=== PATIENT | female | born 1965 | race Caucasian/White ===

== ENCOUNTER → 2019-08-04 13:21 | Outpatient (BNVA) | payer MEDICARE, SELFPAY | PROVIDERS: Family Provider Family Medicine; PCP Family Medicine; Visit Provider Nurse Practitioner | DX: F25.0 Schizoaffective disorder, bipolar type (principal); F10.20 Alcohol dependence, uncomplicated | CPT/HCPCS: 99214 ==

== ENCOUNTER 2019-08-15 10:13 | Outpatient (CLI) | payer MEDICARE, SELFPAY ==
--- NOTE | 2019-08-15 10:22 | MM_ITS ---
WS: [id number] SCREENING DIGITAL MAMMOGRAM WITH CAD HISTORY: SCREENING COMPARISON: 06/14/2018, 11/09/2017, 11/22/2013 Bilateral CC and MLO views submitted. Computer aided detection analyzed. Breast composition: The breasts are heterogeneously dense, which may obscure small masses. No suspici ous masses, microcalcifications or architectural distortion. Asymmetric fibroglandular tissue and amber cifications are stable. MM/[place] [id number] IMPRESSION: BI-RADS: 2-Benign FOLLOW UP: 1 Year Follow-up
== END 2019-08-15 10:14 | disposition home or self-care (01) ==
LOC: RADSHAW 10:19
PROVIDERS: Family Provider Family Medicine; PCP Family Medicine; Visit Provider Family Medicine
DX: Z12.31 Encounter for screening mammogram for malignant neoplasm of breast (principal)
CPT/HCPCS: 77067

== ENCOUNTER → 2019-10-25 08:21 | Outpatient (BNVA) | payer MEDICARE, SELFPAY | PROVIDERS: Family Provider Family Medicine; PCP Family Medicine; Visit Provider Nurse Practitioner | DX: F10.20 Alcohol dependence, uncomplicated (principal); F25.0 Schizoaffective disorder, bipolar type | CPT/HCPCS: 99214 ==

== ENCOUNTER 2019-11-11 10:07 | Outpatient (CLI) | payer MEDICARE, SELFPAY ==
--- NOTE | 2019-11-11 10:13 | US_ITS ---
WS: [id number] ABDOMINAL ULTRASOUND LIMITED REASON FOR VISIT: ELEVATED LIVER ENZYMES TECHNIQUE: Grayscale and Doppler ultrasound examination of the abdomen. FINDINGS: Pancreas: Within normal limits Abdominal aorta and IVC: Within normal limits Liver: Liver measures 8.40 cm in length. Normal hepatopedal circulation. Gallbladder: Gallbladder wall thickness measures 0.28 cmno stones are identified. Common bile duct me asures 0.43 cm. Right kidney: Right kidney measures 11.13 cm x 4.36 cm x 4.86 cm. No hydronephrosis no stones US/US abdomen limited 62099 IMPRESSION: The gallbladder is mildly thickened wall suggesting low-grade cholecystitis.
== END 2019-11-11 10:08 | disposition home or self-care (01) ==
PROVIDERS: Visit Provider Family Medicine
DX: R74.8 Abnormal levels of other serum enzymes (principal)
CPT/HCPCS: 76705

== ENCOUNTER → 2019-12-06 08:21 | Outpatient (BNVA) | payer MEDICARE, SELFPAY | PROVIDERS: Visit Provider Nurse Practitioner | DX: F25.0 Schizoaffective disorder, bipolar type (principal); F10.20 Alcohol dependence, uncomplicated | CPT/HCPCS: 99213 ==

== ENCOUNTER → 2020-01-30 07:38 | Outpatient (BNVA) | payer MEDICARE, SELFPAY | PROVIDERS: Visit Provider Nurse Practitioner | DX: F25.0 Schizoaffective disorder, bipolar type (principal); F10.20 Alcohol dependence, uncomplicated | CPT/HCPCS: 99213 ==

== ENCOUNTER 2020-02-02 14:11 | Emergency (ER) | payer MEDICARE, SELFPAY ==
[2020-02-02 14:16] VITALS: BP 155/81; PULSE 97; RESP 16; TEMP 36.9; O2SAT 97; BMI 22.1
--- NOTE | 2020-02-02 14:37 | ECG_ITS ---
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 Measurements Intervals [place] Rate: 91 P: 28 TX: 173 QRS: 21 QRSD: 97 T: 50 QT: 358 QTc: 441 Interpretive Statements SINUS RHYTHM Compared to ECG 04/03/2019 14:34:51 No significant changes Electronically Signed On 02-03-2020 16:00:18 CDT by Tylor Jackson M.D. [email or web address] regional medical [email or web address] [email or web address]/store/OM/[id number]
--- NOTE | 2020-02-02 14:37 | CT_ITS ---
WS: [id number] CT HEAD TECHNIQUE: Noncontrast CT of the head obtained from the skullbase to the vertex. CLINICAL INFORMATION: Symptoms of Acute Stroke COMPARISON: CT 9 ,019 and MRI 1999 2016, 2010, 2005 DLP: 678.[address] scans at [facility] use at least one of these dose optimization techniques: automat ed exposure control; mA and/or kV adjustment per patient size (includes targeted exams where dose is matched to clinical indication); or iterative reconstruction. FINDINGS: No evidence of intracranial hemorrhage or mass effect. Ventricular system and basal cisterns are davis nt. No extra-axial fluid collections. No evidence of mass or mass effect. Normal marrero-white different iation. Paranasal sinuses and mastoid air cells are well aerated. .Normal visualized soft tissues. Incidental slightly low-lying cerebellar tonsils. Notified Tashi Andrews DO at 02/02/2020 3:[address]/CT head wo con* [id number] IMPRESSION: 1. No evidence of intracranial hemorrhage or mass effect. 2. Normal marrero-white differentiation. 3. No acute intracranial findings
--- NOTE | 2020-02-02 14:40 | ED_ITS ---
HPI - Neuro Symptoms/Deficit General: Chief Complaint: Neuro Symptoms/Deficit Stated Complaint: feels weird Time Seen by Provider: 02/02/20 14:28 History of Present Illness: HPI Narrative: 54-year-old female comes in concerned about blood pressure just generalized that she not feeling well lightheadedness some shortness of breath she denies chest pain no difficulty with speech or swallowing left arm is been tingling. She states she still has a tingling in her arms she denies any nausea vomiting diarrhea no respiratory symptoms no abdominal pain no other symptoms. She is not on any medications for blood pressure states she has a history of bipolar Onset (ago): day(s) Location: left arm History of same: Yes Severity: mild Quality: numb and tingling Relieving factors: none Exacerbating factors: none Context: gradual onset Associated symptoms: Reports no associated symptoms; Deny chest pain, cough, diaphoresis, fevers/chills, nausea, seizures or vomiting Treatments Prior to Arrival: none Review of Systems Const: Denies: diaphoresis ENMT: Denies: throat pain, ear or mastoid pain, nasal discharge or nasal congestion Card: Denies: chest pain Resp: Denies: dyspnea, productive cough or non-productive cough GI: Denies: abdominal pain, nausea, vomiting, hematemesis, coffee ground emesis, diarrhea, constipation, bloating, hematochezia or melena : Denies: flank pain, difficulty voiding, dysuria, urinary frequency or urinary urgency Skin/Breast: Denies: rash or pruritus PFSH ED PFSH: Medical History Alcohol dependence, uncomplicated Schizoaffective disorder, bipolar type Social History Smoking and tobacco status: heavy tobacco smoker cigarettes Smoking risk assessment/counseling performed?: Yes Tobacco counseling given: counseling >3 minutes Alcohol intake: current Alcohol intake frequency: 0-2 Drinks per Day NIH stroke score NIHSS: Level Of Consciousness - 1a: 0 Level Of Consciousness Questions - 1b: Both Correct Level Of Consciousness Commands - 1c: Both Correct Best Gaze - 2: Normal Visual Whalen - 3: No Visual Loss Facial Palsy - 4: Normal Motor Arm Right - 5: No Drift Motor Arm Left - 5: No Drift Motor Leg Right - 6: No Drift Motor Leg Left - 6: No Drift Limb Ataxia - 7: Absent Sensory - 8: Normal Best Language - 9: No Aphasia Dysarthia - 10: Normal Extinction And Inattention - 11: 0 Score: Total Score: 0 Physical Exam Const: COMMON NORMALS: no acute distress GENERAL APPEARANCE: cooperative and comfortable ORIENTATION/CONSCIOUSNESS: Yes awake, Yes oriented to person, Yes oriented to place and Yes oriented to time HENMT: COMMON NORMALS: normocephalic and atraumatic HEAD & SCALP: normoceph alic and atraumatic Eye: COMMON NORMALS: Equal, round and reactive pupils present, EOMs intact bilaterally, conjunctivae normal and no scleral icterus CONJUNCTIVA: Yes conjunctivae normal PUPIL: Yes Equal, round and reactive pupils present Neck/C-Spine: COMMON NORMALS: full ROM, no lymphadenopathy, supple and no JVD Lymph: LYMPHATIC: no lymphadenopathy noted and no lymphedema noted Resp: COMMON NORMALS: normal respiratory effort, No retractions, No use of accessory muscles and clear to auscultation bilaterally AUSCULTATION: clear to auscultation bilaterally Cardio: COMMON NORMALS: no JVD, regular rate, regular rhythm and No murmurs present (Cardio) RATE: regular rate RHYTHM: regular rhythm GI: COMMON NORMALS: Soft to palpation and No hepatosplenomegaly present AUSCULTATION: Yes normoactive bowel sounds PALPATION: Yes Soft to palpation, No Tenderness to palpation present (GI), No Guarding due to palpation present (GI) and Yes No hepatosplenomegaly present Extremity: COMMON NORMALS: normal to inspection, capillary refill normal, no clubbing, cyanosis or edema, no calf tenderness and no pedal edema Neuro: SENSORIUM/ORIENTATION: Yes oriented to person, Yes oriented to place and Yes oriented to time Skin: COMMON NORMALS: no rashes or lesions noted GENERAL SKIN EXAM: no rashes or lesions noted Course Vital Signs: Vital signs: Vital Signs Temperature 98.4 F 02/02/20 14:16 Pulse Rate 96 02/02/20 17:28 Respiratory Rate 16 02/02/20 17:28 Blood Pressure 165/95 02/02/20 17:28 Pulse Oximetry 97 02/02/20 17:28 MDM - Neuro Symptoms/Deficit MDM Narrative: Medical decision making narrative: After fluids patient is feeling much better blood pressure is improved we will discharge home did ask her to take aspirin daily. We will also start her on lisinopril 5 mg p.o. daily. Return to the ER if she has problems otherwise follow-up with primary care doctor within the week. Lab Data: Labs: Lab Results 02/02/20 02/02/20 02/02/20 Range/Units 15:11 15:11 15:11 WBC 5.5 (4.0-10.0) 10^3/ uL RBC 4.12 (4.1-5.3) 10^6/u L Hgb 13.2 (11.5-15.3) g/dL Hct 41.6 (37.0-47.0) % MCV 101.0 H (81-99) fL MCH 32.0 (28.0-34.0) pg MCHC 31.7 (30.0-36.0) g/dL RDW 12.8 (12.1-15.1) % Plt Count 196 (130-400) 10^3/c mm MPV 11.8 H (7.4-10.4) fL Neut % (Auto) 77.1 % Lymph % (Auto) 15.2 % [place] % (Auto) 6.1 % Eos % (Auto) 0.7 % Baso % (Auto) 0.5 % Neut # (Auto) 4.27 (1.8-7.7) 10^3/u L Lymph # (Auto) 0.8 (0.8-4.8) 10^3/u L [place] # (Auto) 0.3 (0.2-0.9) 10^3/u L Eos # (Auto) 0.0 (0.0-0.8) 10^3/u L Baso # (Auto) 0.0 (0.0-0.1) 10^3/u L Nucleated RBC % (a uto) 0 % Nucleated RBCs # 0.0 /100WBC PT 12.30 (10.5-13.3) SECO NDS INR 0.88 (0.8-1.2) APTT 27.2 (23.9-36.7) SECO NDS Sodium 139 (136-145) mmol/L Potassium 4.4 (3.5-5.1) mmol/L Chloride 106 (98-107) mmol/L Carbon Dioxide 25 (22-29) mmol/L Anion Gap 12.4 (5-19) BUN 20 (6-20) mg/dL Creatinine 0.8 (0.5-0.9) mg/dL GFR Calculation 74.7 L (90-130) mL/min Glucose 122 H (65-115) mg/dL Calculated Osmolal ity 286 (285-295) mOsm/k g Calcium 9.6 (8.5-10.5) mg/dL Total Bilirubin 0.2 (0.15-1.2) mg/dL AST 32 (0-32) U/L ALT 36 H (0-33) U/L Alkaline Phosphata se 131 H (35-105) IU/L Total Protein 6.8 (6.6-8.7) g/dL Albumin 4.7 (3.5-5.2) g/dL Globulin 2.1 (1.3-4.6) g/dL Urine Color (Yellow) Urine Appearance (CLEAR) Urine pH (5-7) Ur Specific Gravit y (1.005-1.030) Urine Protein (Negative) Urine Glucose (UA) (Normal) Urine Ketones (Negative) Urine Blood (Negative) Urine Nitrate (Negative) Urine Bilirubin (NEGATIVE) Urine Urobilinogen (Negative) mg/dL Ur Leukocyte Fidelia ase (Negative) Urine Opiates Scre en (Negative) ng/mL Ur Barbiturates Sc reen (Negative) ng/mL Ur Phencyclidine S crn (Negative) ng/mL Ur Amphetamines Sc reen (Negative) ng/mL U Benzodiazepines Scrn (Negative) ng/mL Urine Cocaine Scre en (Negative) ng/mL U Marijuana (THC) Screen (Negative) ng/mL 02/02/20 02/02/20 Range/Units 16:06 16:06 WBC (4.0-10.0) 10^3/ uL RBC (4.1-5.3) 10^6/u L Hgb (11.5-15.3) g/dL Hct (37.0-47.0) % MCV (81-99) fL MCH (28.0-34.0) pg MCHC (30.0-36.0) g/dL RDW (12.1-15.1) % Plt Count (130-400) 10^3/c mm MPV (7.4-10.4) fL Neut % (Auto) % Lymph % (Auto) % [place] % (Auto) % Eos % (Auto) % Baso % (Auto) % Neut # (Auto) (1.8-7.7) 10^3/u L Lymph # (Auto) (0.8-4.8) 10^3/u L [place] # (Auto) (0.2-0.9) 10^3/u L Eos # (Auto) (0.0-0.8) 10^3/u L Baso # (Auto) (0.0-0.1) 10^3/u L Nucleated RBC % (a uto) % Nucleated RBCs # /100WBC PT (10.5-13.3) SECO NDS INR (0.8-1.2) APTT (23.9-36.7) SECO NDS Sodium (136-145) mmol/L Potassium (3.5-5.1) mmol/L Chloride (98-107) mmol/L Carbon Dioxide (22-29) mmol/L Anion Gap (5-19) BUN (6-20) mg/dL Creatinine (0.5-0.9) mg/dL GFR Calculation (90-130) mL/min Glucose (65-115) mg/dL Calculated Osmolal ity (285-295) mOsm/k g Calcium (8.5-10.5) mg/dL Total Bilirubin (0.15-1.2) mg/dL AST (0-32) U/L ALT (0-33) U/L Alkaline Phosphata se (35-105) IU/L Total Protein (6.6-8.7) g/dL Albumin (3.5-5.2) g/dL Globulin (1.3-4.6) g/dL Urine Color Yellow (Yellow) Urine Appearance Clear (CLEAR) Urine pH 6 (5-7) Ur Specific Gravit y 1.020 (1.005-1.030) Urine Protein Neg (Negative) Urine Glucose (UA) Norm (Normal) Urine Ketones Negative (Negative) Urine Blood Neg (Negative) Urine Nitrate Negative (Negative) Urine Bilirubin Neg (NEGATIVE) Urine Urobilinogen Norm (Negative) mg/dL Ur Leukocyte Fidelia ase Negative (Negative) Urine Opiates Scre en Negative (Negative) ng/mL Ur Barbiturates Sc reen Negative (Negative) ng/mL Ur Phencyclidine S crn Negative (Negative) ng/mL Ur Amphetamines Sc reen Negative (Negative) ng/mL U Benzodiazepines Scrn Negative (Negative) ng/mL Urine Cocaine Scre en Negative (Negative) ng/mL U Marijuana (THC) Screen Negative (Negative) ng/mL Discharge Plan Discharge Patient Disposition: Home Clinical Impression: Hypertension Condition: Stable Prescriptions: New lisinopril 5 mg tablet 5 mg PO DAILY Qty: 30 RF: 0 aspirin 81 mg tablet,chewable 81 mg PO DAILY Qty: 30 RF: 0 No Action mirtazapine 30 mg tablet 45 mg PO BEDTIME RF: 0 gabapentin 100 mg capsule 200 mg PO TID RF: 0 fluoxetine [Prozac] 40 mg capsule 80 mg PO QAM Qty: 60 RF: 1 quetiapine [Seroquel] 100 mg tablet 100 mg PO BID Qty: 60 RF: 1 cyclobenzaprine 10 mg Tablet 10 mg PO BID RF: 0 potassium chloride 10 mEq tablet extended release 10 meq PO DAILY RF: 0 simvastatin 40 mg Tablet 40 mg PO DAILY RF: 0 levothyroxine 75 mcg Tablet 75 mcg PO DAILY RF: 0 dicyclomine 20 mg tablet 20 mg PO QID RF: 0 omeprazole 20 mg Capsule,Delayed Release(Dr/Ec) 20 mg PO BID RF: 0 loratadine 10 mg Tablet 10 mg PO QAM RF: 0 naproxen 500 mg Tablet 500 mg PO BID RF: 0 Ultram 50 - 100 mg PO TID PRN (Reason: Pain) RF: 0 Vitamin B-12 1 tab PO DAILY RF: 0 Vitamin C 1 tab PO DAILY RF: 0 magnesium 1 tab PO DAILY RF: 0 vitamin E 1 cap PO DAILY RF: 0 Lamictal 25 mg tablet 50 mg PO DAILY RF: 0 Seroquel 400 mg tablet 800 mg PO BEDTIME RF: 0 Discharge Orders: Discharge Order (Routine); Ordered 02/02/20 Ordered By: Tashi Andrews Referrals: Caitlyn Leslie MD [Primary Care Provider] - Discharge Diet: Usual diet Discharge Activity: Resume usual activity Activity Restrictions/Additional Instructions: Follow-up with your primary care doctor recheck your blood pressure in 1 week. Discharge Date/Time: 07/30/20 17:29 Coding Level of Care Code ED Sound Controller for Chg Fwd Exam Comprehensive
[2020-02-02 14:45] VITALS: BP 142/98; PULSE 93; RESP 18; O2SAT 96
[2020-02-02 15:45] LABS: Basophils % 0.5 %; Eosinophils % 0.7 %; Hematocrit 41.6 % (37.0-47.0); Hemoglobin 13.2 g/dL (11.5-15.3); Lymphocytes # 0.8 10^3/uL (0.8-4.8); Lymphocytes % 15.2 %; Mean Corpuscular HGB Conc 31.7 g/dL (30.0-36.0); Mean Platelet Volume 11.8 fL (7.4-10.4); Monocytes # 0.3 10^3/uL (0.2-0.9); Monocytes % 6.1 %; Neutrophils # 4.27 10^3/uL (1.8-7.7); Neutrophils % 77.1 %; Nucleated Red Blood Cells % 0 %; Platelet Count 196 10^3/cmm (130-400); Red Blood Count 4.12 10^6/uL (4.1-5.3); Red Cell Distribution Width 12.8 % (12.1-15.1); White Blood Count 5.5 10^3/uL (4.0-10.0)
[2020-02-02 15:52] LABS: INR 0.88 (0.8-1.2)
[2020-02-02 15:53] LABS: Partial Thromboplastin Time 27.2 SECONDS (23.9-36.7)
[2020-02-02 15:59] LABS: Alanine Aminotransferase 36 U/L (0-33); Albumin Level 4.7 g/dL (3.5-5.2); Alkaline Phosphatase 131 IU/L (35-105); Anion Gap 12.4 (5-19); Aspartate Amino Transferase 32 U/L (0-32); Blood Urea Nitrogen 20 mg/dL (6-20); Calcium 9.6 mg/dL (8.5-10.5); Carbon Dioxide 25 mmol/L (22-29); Chloride 106 mmol/L (98-107); Globulin 2.1 g/dL (1.3-4.6); Glomerular Filtration Rate 74.7 mL/min (90-130); Glucose 122 mg/dL (65-115); Osmolality Calculated 286 mOsm/kg (285-295); Potassium 4.4 mmol/L (3.5-5.1); Sodium 139 mmol/L (136-145); Total Bilirubin 0.2 mg/dL (0.15-1.2); Total Protein 6.8 g/dL (6.6-8.7)
[2020-02-02 16:01] VITALS: BP 138/78; PULSE 74; RESP 16; O2SAT 98
[2020-02-02 16:14] LABS: Add Urine Microscopic? NO
[2020-02-02 16:26] LABS: Bilirubin Urine Neg (NEGATIVE); Blood Urine Neg (Negative); Glucose Urine UA Norm (Normal); Ketones Urine Negative (Negative); Leukocyte Esterase Urine Negative (Negative); Nitrate Urine Negative (Negative); Protein Urine Neg (Negative); Urine Appearance Clear (CLEAR); Urine Color Yellow (Yellow); Urobilinogen Urine Norm (Negative); pH Urine 6 (5-7)
[2020-02-02 17:19] LABS: Amphetamines Screen Urine Negative (Negative); Barbiturates Screen Urine Negative (Negative); Benzodiazepines Screen Urine Negative (Negative); Cocaine Screen Urine Negative (Negative); Opiate Screen Urine Negative (Negative); PCP Screen Urine Negative (Negative); THC Screen Urine Negative (Negative)
[2020-02-02 17:28] VITALS: BP 165/95; PULSE 96; RESP 16; O2SAT 97
== END 2020-02-02 17:29 | disposition home or self-care (01) ==
PROVIDERS: Emergency Provider Family Medicine; PCP Family Medicine
DX: I10 Essential (primary) hypertension (principal); F17.210 Nicotine dependence, cigarettes, uncomplicated; Z79.899 Other long term (current) drug therapy
CPT/HCPCS: 12345; 36415; 70450; 80053; 80306; 81003; 85025; 85610; 85730; 93005; 99283; 99284

== ENCOUNTER → 2020-02-27 08:19 | Outpatient (BNVA) | payer MEDICARE, SELFPAY | PROVIDERS: PCP Family Medicine; Visit Provider Nurse Practitioner | DX: F25.0 Schizoaffective disorder, bipolar type (principal); F10.20 Alcohol dependence, uncomplicated; Z79.899 Other long term (current) drug therapy | CPT/HCPCS: 99214 ==

== ENCOUNTER → 2020-04-23 07:56 | Outpatient (BNVA) | payer MEDICARE, SELFPAY | PROVIDERS: PCP Family Medicine; Visit Provider Nurse Practitioner | DX: F25.0 Schizoaffective disorder, bipolar type (principal); F10.20 Alcohol dependence, uncomplicated | CPT/HCPCS: 99213 ==

== ENCOUNTER → 2020-07-18 07:49 | Outpatient (BNVA) | payer MEDICARE, SELFPAY | PROVIDERS: PCP Family Medicine; Visit Provider Nurse Practitioner | DX: F10.20 Alcohol dependence, uncomplicated (principal); F25.0 Schizoaffective disorder, bipolar type | CPT/HCPCS: 99213 ==

== ENCOUNTER → 2020-10-10 08:23 | Outpatient (BNVA) | payer MEDICARE, SELFPAY | PROVIDERS: PCP Family Medicine; Visit Provider Nurse Practitioner | DX: F25.0 Schizoaffective disorder, bipolar type (principal); F10.20 Alcohol dependence, uncomplicated | CPT/HCPCS: 99214 ==

== ENCOUNTER → 2020-11-28 07:45 | Outpatient (BNVA) | payer MEDICARE, SELFPAY | PROVIDERS: PCP Family Medicine; Visit Provider Nurse Practitioner | DX: F25.0 Schizoaffective disorder, bipolar type (principal); F10.20 Alcohol dependence, uncomplicated | CPT/HCPCS: 99214 ==

== ENCOUNTER → 2020-12-06 10:50 | Outpatient (BNVA) | payer MEDICARE, SELFPAY | PROVIDERS: PCP Family Medicine | DX: S62.616A Displaced fracture of proximal phalanx of right little finger, initial encounter for closed fracture (principal); W19.XXXA Unspecified fall, initial encounter | CPT/HCPCS: 73130 ==

== ENCOUNTER 2021-01-01 08:25 | Outpatient (CLI) | payer MEDICARE, SELFPAY ==
--- NOTE | 2021-01-01 | US_ITS ---
NOTE: Report was unsigned for reason: Order was edited. Original Signature date and time was: 01/01/2021 0942 BILATERAL DIAGNOSTIC DIGITAL MAMMOGRAM WITH CAD HISTORY: Mastodynia; aziza BREAST PAIN COMPARISON: 08/15/2019, 06/14/2018 Bilateral CC, ML and MLO views submitted. Computer aided detection analyzed. Breast composition: The breasts are heterogeneously dense, which may obscure small masses. No suspicious masses, microcalcifications or architectural distortion. Asymmetries are stable. No suspicious mass or interval change in the breasts. IMPRESSION: BI-RADS: 2-Benign FOLLOW UP: 1 Year Follow-up Bilateral breast ultrasound, limited. Ultrasound was also performed in the upper outer quadrants of each breast as this is the location of greatest pain. Ultrasound is directed to the upper-outer quadrants of each breast. No masses or distortion. No shadowing or soft tissue mass. No lymph nodes are identified. IMPRESSION: BI-RADS 2. Follow-up: 1 year follow-up. Dictated By: Nimo Hyde DO Signed By: Nimo Hyde DO Signed Date/Time: 01/01/21 1438 DD/ 0941 MTDCarmen
--- NOTE | 2021-01-01 08:32 | MM_ITS ---
WS: [id number] BILATERAL DIAGNOSTIC DIGITAL MAMMOGRAM WITH CAD HISTORY: Mastodynia; aziza BREAST PAIN COMPARISON: 08/15/2019, 06/14/2018 Bilateral CC, ML and MLO views submitted. Computer aided detection analyzed. Breast composition: The breasts are heterogeneously dense, which may obscure small masses. No suspici ous masses, microcalcifications or architectural distortion. Asymmetries are stable. No suspicious ma ss or interval change in the breasts.
== END 2021-01-01 08:26 | disposition home or self-care (01) ==
LOC: RADSHAW 08:30
PROVIDERS: PCP Family Medicine; Visit Provider Family Medicine
DX: N64.4 Mastodynia (principal)
CPT/HCPCS: 76642; 77066

== ENCOUNTER → 2021-01-03 09:51 | Outpatient (BNVA) | payer MEDICARE, SELFPAY | PROVIDERS: PCP Family Medicine; Visit Provider Orthopaedic Surgery | DX: S62.616A Displaced fracture of proximal phalanx of right little finger, initial encounter for closed fracture (principal); X58.XXXA Exposure to other specified factors, initial encounter | CPT/HCPCS: 73130 ==

== ENCOUNTER → 2021-01-09 07:22 | Outpatient (BNVA) | payer MEDICARE, SELFPAY | PROVIDERS: PCP Family Medicine; Visit Provider Nurse Practitioner | DX: F25.0 Schizoaffective disorder, bipolar type (principal); F10.20 Alcohol dependence, uncomplicated | CPT/HCPCS: 99214 ==

== ENCOUNTER → 2021-02-22 09:42 | Outpatient (BNVA) | payer MEDICARE, SELFPAY | PROVIDERS: PCP Family Medicine; Visit Provider Orthopaedic Surgery | DX: S62.616A Displaced fracture of proximal phalanx of right little finger, initial encounter for closed fracture (principal); X58.XXXA Exposure to other specified factors, initial encounter | CPT/HCPCS: 73140 ==

== ENCOUNTER → 2021-03-08 07:12 | Outpatient (BNVA) | payer MEDICARE, SELFPAY | PROVIDERS: PCP Family Medicine; Visit Provider Nurse Practitioner | DX: F25.0 Schizoaffective disorder, bipolar type (principal); F10.20 Alcohol dependence, uncomplicated | CPT/HCPCS: 99214 ==

== ENCOUNTER 2021-05-14 15:34 | Outpatient (CLI) | payer MEDICARE, SELFPAY ==
--- NOTE | 2021-05-14 15:40 | XRR_ITS ---
PROCEDURE INFORMATION: Exam: XR Right Ribs Exam date and time: 05/14/2021 3:40 PM Age: 56 years old Clinical indication: Injury or trauma; Fall; Rib area; Blunt trauma (contusions or hematomas); Injury date: Today; Prior surgery; Surgery date: 6+ months; Patient HX: PT fell over a tree branch, right side sharp rib pain around breast area; Additional info: Pain after fall TECHNIQUE: Imaging protocol: XR Right ribs. Views: 2 views. COMPARISON: CR Chest 1 [place] [id number] 04/03/2019 2:39 PM FINDINGS: Bones/joints: Normal. Soft tissues: Normal. XR/XR ribs RT 2V* [id number] IMPRESSION: No acute findings. Radiation Dose CTDIVOL = (mGy): DLP = (mGy-cm)
== END 2021-05-14 15:35 | disposition home or self-care (01) ==
PROVIDERS: PCP Family Medicine; Visit Provider Nurse Practitioner
DX: R07.81 Pleurodynia (principal)
CPT/HCPCS: 71100

== ENCOUNTER → 2021-06-05 07:51 | Outpatient (BNVA) | payer MEDICARE, SELFPAY | PROVIDERS: PCP Family Medicine; Visit Provider Nurse Practitioner | DX: F25.0 Schizoaffective disorder, bipolar type (principal); F10.20 Alcohol dependence, uncomplicated | CPT/HCPCS: 99214 ==

== ENCOUNTER → 2021-09-03 07:38 | Outpatient (BNVA) | payer MEDICARE, SELFPAY | PROVIDERS: PCP Family Medicine; Visit Provider Nurse Practitioner | DX: F25.0 Schizoaffective disorder, bipolar type (principal); F10.20 Alcohol dependence, uncomplicated | CPT/HCPCS: 99214 ==

== ENCOUNTER 2021-09-19 12:15 | Outpatient (CLI) | payer MEDICARE, SELFPAY ==
--- NOTE | 2021-09-19 12:26 | CT_ITS ---
WS: [id number] CT head wo/w con [id number] REASON FOR EXAM: FREQUENT FALLS IV CONTRAST ADMINISTERED: 95 mL of Omnipaque 300 TOTAL EXAM DLP: All CT scans at [facility] use at least one of these dose optimization techniques: automat ed exposure control; mA and/or kV adjustment per patient size (includes targeted exams where dose is matched to clinical indication); or iterative reconstruction. FINDINGS: Examination is unchanged compared to 02/02/2020. There is no midline shift or other significant mass effect. There are no findings of intra or extra-axial or hemorrhage. No focal brain parenchymal abnormality identified. No abnormal contrast enhancement. Prominent lateral ventricles. See if spaces otherwise are unremarkable. The base of the skull and the bony calvarium are intact. Normal enhancement of the carotid, vertebral, and basilar arteries at the base of the brain. CT/CT head wo/w con [id number] IMPRESSION: No acute abnormality. Examination is unchanged compared to 02/02/2020.
[2021-09-19] MEDS: iohexol 300 mg/mL 100 mL Btl IV (13:18)
== END 2021-09-19 12:16 | disposition home or self-care (01) ==
LOC: RAD 12:17
PROVIDERS: PCP Family Medicine; Visit Provider Family Medicine
DX: R29.6 Repeated falls (principal); F04 Amnestic disorder due to known physiological condition
CPT/HCPCS: 70470

== ENCOUNTER → 2021-11-05 07:25 | Outpatient (BNVA) | payer MEDICARE, SELFPAY | PROVIDERS: PCP Family Medicine; Visit Provider Nurse Practitioner | DX: Z79.899 Other long term (current) drug therapy (principal); F25.0 Schizoaffective disorder, bipolar type; F10.20 Alcohol dependence, uncomplicated | CPT/HCPCS: 99214 ==

== ENCOUNTER → 2021-12-11 10:06 | Outpatient (BNVA) | payer MEDICARE, SELFPAY | PROVIDERS: PCP Family Medicine; Visit Provider Nurse Practitioner | DX: Z79.899 Other long term (current) drug therapy (principal) | CPT/HCPCS: 80061; 83036 ==

== ENCOUNTER 2021-12-24 10:12 | Outpatient (CLI) | payer MEDICARE, SELFPAY ==
--- NOTE | 2021-12-24 12:03 | XR_ITS ---
WS: [id number] Exam: XR hip LT 2-3V wo/w pel* [id number] Date/Time of Exam: 12/24/2021 12:08 PM Reason For Exam: DORSALGIA/BACK PAIN Findings: No fractures or bone anomalies are noted. No unusual soft tissue masses or calcifications are seen. The bony elements of the hip are in adequate alignment. XR/XR hip LT 2-3V wo/w pel* [id number] IMPRESSION: Negative left hip. Tonnis classification: 0
--- NOTE | 2021-12-24 12:03 | XR_ITS ---
WS: [id number] Exam: XR lumbar spine 2-3V* [id number] Date/Time of Exam: 12/24/2021 12:08 PM Reason For Exam: BACK PAIN No fracture or dislocation. Disc spaces are preserved. Slight degenerative anterolisthesis of L5 on S 1. Facet DJD at L4-5 and L5-S1. Posterior elements are otherwise intact. Osteopenia. XR/XR lumbar spine 2-3V* [id number] IMPRESSION: 1. Slight degenerative anterolisthesis of the L5 on the S1. 2. No fracture or malalignment. Osteopenia.
--- NOTE | 2021-12-24 12:03 | XR_ITS ---
WS: [id number] Exam: XR knee LT 3V* [id number] Date/Time of Exam: 12/24/2021 12:08 PM Reason For Exam: BACK PAIN/DORSALGIA No fracture or dislocation noted. Articular relationships are intact. No joint effusion. XR/XR knee LT 3V* [id number] Impression: Normal left knee Kellgren-Bryce Classification: 0
== END 2021-12-24 10:13 | disposition home or self-care (01) ==
LOC: RAD 10:16
PROVIDERS: PCP Family Medicine; Visit Provider Family Medicine
DX: M85.88 Other specified disorders of bone density and structure, other site (principal); M54.50 Low back pain, unspecified; M25.562 Pain in left knee; M25.552 Pain in left hip
CPT/HCPCS: 72100; 73502; 73562

== ENCOUNTER 2022-01-14 11:24 | Outpatient (CLI) | payer MEDICARE, SELFPAY ==
--- NOTE | 2022-01-14 11:33 | MM_ITS ---
WS: [id number] SCREENING DIGITAL MAMMOGRAM WITH CAD HISTORY: SCREENING COMPARISON: 01/01/2021 and 06/14/2018 Bilateral CC and MLO with tomosynthesis views submitted. Synthetic mammography reviewed. Computer aid ed detection analyzed. Breast composition: Motion artifact on the RIGHT CC projection. There are scattered areas of fibrogla ndular density. No suspicious masses, microcalcifications or architectural distortion. MM/[place] [id number] IMPRESSION: BI-RADS: 2-Benign FOLLOW UP: 1 Year Follow-up
== END 2022-01-14 11:25 | disposition home or self-care (01) ==
PROVIDERS: PCP Family Medicine; Visit Provider Family Medicine
DX: Z12.31 Encounter for screening mammogram for malignant neoplasm of breast (principal)
CPT/HCPCS: 77063; 77067

== ENCOUNTER → 2022-10-28 09:22 | Outpatient (BNVA) | payer MEDICARE, SELFPAY | PROVIDERS: PCP Family Medicine; Visit Provider Nurse Practitioner | DX: F10.20 Alcohol dependence, uncomplicated (principal); Z79.899 Other long term (current) drug therapy | CPT/HCPCS: 80061; 83036 ==

== ENCOUNTER 2023-02-02 09:51 | Outpatient (CLI) | payer MEDICARE, SELFPAY ==
--- NOTE | 2023-02-02 10:29 | MM_ITS ---
WS: [id number] SCREENING DIGITAL BREAST TOMOSYNTHESIS MAMMOGRAM WITH CAD HISTORY: SCREENING COMPARISON: 01/14/2022, 01/01/2021, 08/15/2019 Bilateral CC and MLO with tomosynthesis and synthetic mammography submitted. Computer aided detection analyzed. Breast composition: The breasts are heterogeneously dense, which may obscure small masses. Focal asym metry measuring 10 mm is more prominent than on prior studies in the medial LEFT breast. This is prob ably at the 9:00 axis and in the middle depth. RIGHT breast is negative for MM/[place] [id number] IMPRESSION: BI-RADS: 0-Incomplete: Need additional imaging evaluation FOLLOW UP: Need Additional Imaging LEFT breast: Spot compression views (CC and MLO). True ML. Ultrasound to follow if abnormality persists.
== END 2023-02-02 09:52 | disposition home or self-care (01) ==
PROVIDERS: PCP Family Medicine; Visit Provider Family Medicine
DX: Z12.31 Encounter for screening mammogram for malignant neoplasm of breast (principal)
CPT/HCPCS: 77063; 77067

== ENCOUNTER 2023-03-17 20:00 | Outpatient (CLI) | payer MEDICARE, SELFPAY | END 2023-03-17 20:01 | disposition home or self-care (01) | LOC: SLEEP 03-18 06:07 | PROVIDERS: PCP Family Medicine; Visit Provider Anesthesiology Pain Medicine | DX: G47.10 Hypersomnia, unspecified (principal) | CPT/HCPCS: 95810 ==

== ENCOUNTER 2023-03-23 11:21 | Outpatient (CLI) | payer MEDICARE, SELFPAY ==
--- NOTE | 2023-03-23 11:58 | MM_ITS ---
WS: [id number] ADDITIONAL VIEWS LEFT MAMMOGRAM with tomosynthesis. LEFT BREAST ULTRASOUND HISTORY: ABNORMAL MAMMO COMPARISON: 02/02/2023, 01/14/2022 and 01/01/2021 LEFT MAMMOGRAM: Spot compression views and true ML with tomosynthesis and sympathetic mammography. The asymmetry in the medial LEFT breast nearly resolves on the cc view with spot compression view the asymmetry persist on the lateral projection. Ultrasound to follow. LEFT BREAST ULTRASOUND 2-D and color Doppler imaging submitted. Ultrasound directed to the 3 and 9:00 axis of the LEFT breast. No ultrasound abnormality is noted wit hin the LEFT breast at 3 or 9:00. IMPRESSION: MM/[place] [id number] BI-RADS: 2-Benign FOLLOW UP: 1 Year Follow-up No abnormality noted in the LEFT breast to correspond to the mammographic abnor mality.
== END 2023-03-23 11:22 | disposition home or self-care (01) ==
PROVIDERS: PCP Family Medicine; Visit Provider Family Medicine
DX: R92.8 Other abnormal and inconclusive findings on diagnostic imaging of breast (principal)
CPT/HCPCS: 76642; 77061; G0279

== ENCOUNTER 2023-05-13 20:00 | Outpatient (CLI) | payer MEDICARE, SELFPAY | END 2023-05-13 20:01 | disposition home or self-care (01) | LOC: SLEEP 05-14 06:05 | PROVIDERS: PCP Family Medicine; Visit Provider Anesthesiology Pain Medicine | DX: G47.33 Obstructive sleep apnea (adult) (pediatric) (principal); R06.83 Snoring; G47.10 Hypersomnia, unspecified | CPT/HCPCS: 95811 ==

== ENCOUNTER 2023-06-15 07:38 | Outpatient (CLI) | payer MEDICARE, SELFPAY ==
--- NOTE | 2023-06-15 07:48 | CT_ITS ---
WS: [id number] CT HEAD TECHNIQUE: Noncontrast CT of the head obtained from the skullbase to the vertex. CLINICAL INFORMATION: OTHER AMNESIA COMPARISON: 02/02/2020 DLP: 978.[address] scans at [facility] use at least one of these dose optimization techniques: automated e xposure control; mA and/or kV adjustment per patient size (includes targeted exams where dose is matc hed to clinical indication); or iterative reconstruction. FINDINGS: No evidence of intracranial hemorrhage or mass effect. Ventricular system and basal cisterns are davis nt. No extra-axial fluid collections. No evidence of mass or mass effect. Normal marrero-white different iation. Paranasal sinuses and mastoid air cells are well aerated. .Normal visualized soft tissues. IMPRESSION: 1. No evidence of intracranial hemorrhage or mass effect. 2. Normal marrero-white differentiation. 3. No acute intracranial findings.
== END 2023-06-15 07:39 | disposition home or self-care (01) ==
LOC: RAD 07:42
PROVIDERS: PCP Family Medicine; Visit Provider Family Medicine
DX: R41.3 Other amnesia (principal)
CPT/HCPCS: 70450

== ENCOUNTER 2023-09-21 23:53 | Emergency (ER) | payer MEDICARE, SELFPAY ==
[2023-09-21 23:54] VITALS: BP 123/76; PULSE 116; RESP 14; TEMP 36.6; O2SAT 100
--- NOTE | 2023-09-22 00:16 | XRR_ITS ---
PROCEDURE INFORMATION: Exam: XR Chest Exam date and time: 09/22/2023 12:41 AM Age: 58 years old Clinical indication: Angina and dyspnea; Chest wall pain; Additional info: Chest pain/sob TECHNIQUE: Imaging protocol: Radiologic exam of the chest. Views: 2 views. COMPARISON: CR XR chest 1V [id number] 04/03/2019 2:39 PM FINDINGS: Lungs: Clear, symmetrically inflated lungs. Pleural spaces: No pleural effusion. No pneumothorax. Heart/Mediastinum: Cardiac silhouette is normal in size for technique. Bones/joints: Subjective bony demineralization. XR/XR chest 2V* [id number] IMPRESSION: No acute cardiopulmonary abnormality.
--- NOTE | 2023-09-22 00:27 | ED_ITS ---
Documented by User: ELEAZAR Ross 09/22/23 00:33 HPI - Abdominal Pain 2 General: Chief Complaint: Abdominal Pain Stated Complaint: N/V, Weakness Time Seen by Provider: 09/22/23 00:06 Source: patient and family Mode of arrival: ambulatory Limitations: no limitations History of Present Illness: Patient is a 58-year-old female who presents to the emergency department complaining of vomiting onset 2 days. Patient reports that spouse was sick with similar symptoms few days prior to symptom onset. However, patient notes that her vomiting is much more severe she has had too many episodes to count. She is also noting associated diarrhea, chest pain, shortness of breath, weakness, chills, and abdominal pain. Patient denies any previous gastrointestinal history. She notes that the only thing she is able to keep down is water. She denies any fever or other symptoms at this time. Associated Symptoms: Reports chills, diarrhea, nausea and vomiting; Denies bloating, change in stool character, constipation, dysuria, fever(s) and hematochezia Review of Systems 2 General: Reports: 10 or more systems reviewed and unremarkable except in HPI and below Const: Reports: chills and change in appetite; Denies: fever(s), change in weight or diaphoresis ENMT: Denies: throat pain or hoarseness Card: Reports: chest pain; Denies: palpitations or lightheadedness Resp: Reports: dyspnea; Denies: productive cough or wheezing GI: Reports: abdominal pain, nausea, vomiting and diarrhea; Denies: constipation, bloating, change in stool character or hematochezia : Denies: flank pain, difficulty voiding, dysuria, urinary frequency or urinary urgency Musc: Reports: muscle weakness; Denies: neck pain or back pain Skin/Breast: Denies: rash or new lesions Neuro: Denies: headache(s) or dizziness PFSH ED 2 PFSH: Medical History Psychiatric care On high dose antipsychotic drug therapy Alcohol dependence, uncomplicated Schizoaffective disorder, bipolar type Social History Smoking and tobacco/nicotine status: current every day tobacco/nicotine user cigarettes Packs smoked per day: 0.5 Years cigarettes smoked: 40 Quit status (tobacco/nicotine): has tried quititng Number of times tried to quit tobacco: 12 Second hand smoke exposure: No Alcohol intake: current Alcohol intake frequency: 0-2 Drinks per Day Alcohol type: beer and hard liquor Substance/Drug Use: never Physical Exam 2 Const: COMMON NORMALS: no acute distress, average body habitus, patient oriented x3, no limitations, healthy appearing, alert and well nourished G ENERAL APPEARANCE: cooperative and comfortable ORIENTATION/CONSCIOUSNESS: Yes awake HENMT: COMMON NORMALS: normocephalic, atraumatic, hearing grossly normal bilaterally, external ears normal, Normal external nose present, Normal nasal mucous membranes and turbinates present and moist oral mucous membranes HEAD & SCALP: normocephalic and atraumatic NOSE: Normal external nose present and Normal nasal mucous membranes and turbinates present EXTERNAL EAR: Yes external ears normal Eye: COMMON NORMALS: Equal, round and reactive pupils present, EOMs intact bilaterally, conjunctivae normal and normal visual bradley by confrontation C ONJUNCTIVA: Yes conjunctivae normal PUPIL: Yes Equal, round and reactive pupils present Neck/C-Spine: COMMON NORMALS: full ROM, supple, no meningeal signs and no JVD Resp: COMMON NORMALS: normal respiratory effort, No retractions, No use of accessory muscles and clear to auscultation bilaterally AUSCULTATION: clear to auscultation bilaterally, no crackles, no rales, no rhonchi and no wheezes Cardio: COMMON NORMALS: no JVD, regular rate, regular rhythm, S1 normal heart sound present, S2 normal heart sound present, No gallops present (Cardio), No clicks present (Cardio), No murmurs present (Cardio), No rub (Cardio) and Peripheral pulses 2+ throughout RATE: regular rate RHYTHM: regular rhythm HEART SOUNDS: S1 normal heart sound present and S2 normal heart sound present PERIPHERAL PULSES: Peripheral pulses 2+ throughout GI: COMMON NORMALS: Normal to inspection, nondistended, normoactive bowel sounds present, Soft to palpation, No hepatosplenomegaly present and no masses INSPECTION: Yes normal to inspection AUSCULTATION: Yes normoactive bowel sounds PALPATION: Yes Soft to palpation, Yes Tenderness to palpation present (GI) (mild diffuse TTP), No Guarding due to palpation present (GI), No Rigid due to palpation and Yes No hepatosplenomegaly present RECTAL EXAM: deferred : COMMON NORMALS: Yes no CVA tenderness BLADDER/KIDNEY EXAM: Yes no CVA tenderness Back/Pelvis: COMMON NORMALS: no CVA tenderness Extremity: COMMON NORMALS: normal to inspection and full ROM Neuro: COMMON NORMALS: patient oriented x3, moves all extremities, no focal motor deficits and no sensory deficits noted SENSORIUM/ORIENTATION: Yes alert MENINGEAL SIGNS: Yes no meningeal signs Psych: COMMON NORMALS: mental status grossly normal, cooperative and speech normal SPEECH: Yes normal speech Skin: COMMON NORMALS: no rashes or lesions noted GENERAL SKIN EXAM: no rashes or lesions noted Course 2 Vital Signs: Vital signs: Vital Signs Temperature 97.9 F 09/21/23 23:54 Pulse Rate 116 H 09/21/23 23:54 Respiratory Rate 14 09/21/23 23:54 Blood Pressure 123/76 09/21/23 23:54 Pulse Oximetry 100 09/21/23 23:54 Oxygen Delivery Me thod Room Air 09/21/23 23:54 MDM - Abdominal Pain Lab Data 09/22/23 00:30 09/22/23 00:30 Labs/Radiology: Radiology Impressions Chest X-Ray 09/22/23 00:16 IMPRESSION: No acute cardiopulmonary abnormality. Laboratory Results WBC 11.25 10^3/uL (3.29-11.43) 09/22/23 00:30 RBC 4.94 10^6/uL (3.85-5.65) 09/22/23 00:30 Hgb 16.00 g/dL (11.27-16.99) 09/22/23 00:30 Hct 46.1 % (36-47) 09/22/23 00:30 MCV 93.3 fl (85-98) 09/22/23 00:30 MCH 32.4 pg (27-33) 09/22/23 00:30 MCHC 34.7 g/dL (30-55) 09/22/23 00:30 RDW 12.5 % (12.1-15.1) 09/22/23 00:30 Plt Count 265 10^3/cmm (157-399) 09/22/23 00:30 MPV 10.8 fL (7.4-10.4) H 09/22/23 00:30 Neut % (Auto) 83.4 % 09/22/23 00:30 Lymph % (Auto) 3.6 % 09/22/23 00:30 [place] % (Auto) 12.5 % 09/22/23 00:30 Eos % (Auto) 0.0 % 09/22/23 00:30 Baso % (Auto) 0.2 % 09/22/23 00:30 Neut # (Auto) 9.39 10^3/uL (1.8-7.7) H 09/22/23 00:30 Lymph # (Auto) 0.4 10^3/uL (0.8-4.8) L 09/22/23 00:30 [place] # (Auto) 1.4 10^3/uL (0.2-0.9) H 09/22/23 00:30 Eos # (Auto) 0.0 10^3/uL (0.0-0.8) 09/22/23 00:30 Baso # (Auto) 0.0 10^3/uL (0.0-0.1) 09/22/23 00:30 Nucleated RBC % (auto) 0 % 09/22/23 00:30 Nucleated RBCs # 0.0 /100WBC 09/22/23 00:30 Sodium 136 mmol/L (136-145) 09/22/23 00:30 Potassium 3.2 mmol/L (3.5-5.1) L 09/22/23 00:30 Chloride 94 mmol/L (98-107) L 09/22/23 00:30 Carbon Dioxide 23 mmol/L (22-29) 09/22/23 00:30 Anion Gap 22.2 (5-19) H 09/22/23 00:30 BUN 19 mg/dL (6-20) 09/22/23 00:30 Creatinine 1.0 mg/dL (0.5-0.9) H 09/22/23 00:30 GFR Calculation 56.9 mL/min (90-130) L 09/22/23 00:30 Glucose 141 mg/dL (65-115) H 09/22/23 00:30 Calculated Osmolality 287 mOsm/kg (285-295) 09/22/23 00:30 Calcium 10.8 mg/dL (8.5-10.5) H 09/22/23 00:30 Total Bilirubin 0.3 mg/dL (0.15-1.2) 09/22/23 00:30 AST 21 U/L (0-32) 09/22/23 00:30 ALT 19 U/L (0-33) 09/22/23 00:30 Alkaline Phosphatase 119 U/L (35-105) H 09/22/23 00:30 Total Protein 7.8 g/dL (6.6-8.7) 09/22/23 00:30 Albumin 5.4 g/dL (3.5-5.2) H 09/22/23 00:30 Globulin 2.4 g/dL (1.3-4.6) 09/22/23 00:30 Lipase 25 U/L (13-60) 09/22/23 00:30 Urine Color Yellow (Yellow) 09/22/23 00: Urine Appearance Clear (CLEAR) 09/22/23 00: Urine pH 5 (5-7) 09/22/23 00:30 Ur Specific [place] 1.025 (1.005-1.030) 09/22/23 00:30 Urine Protein 2+ (Negative) H 09/22/23 00:30 Urine Glucose (UA) Norm (Normal) 09/22/23 00:30 Urine Ketones 2+ (Negative) H 09/22/23 00:30 Urine Blood Neg (Negative) 09/22/23 00: Urine Nitrate Negative (Negative) 09/22/23 00:30 Urine Bilirubin Neg (Negative) 09/22/23 00:30 Urine Urobilinogen Neg mg/dL (Negative) 09/22/23 00:30 Ur Leukocyte Esterase Negative (Negative) 09/22/23 00:30 Urine RBC 0-4 /hpf (0-2) H 09/22/23 00:30 Urine WBC None /hpf (0-5) 09/22/23 00:30 Ur Squamous Epith Cells 0-4 /hpf (0-5) H 09/22/23 00:30 Ur Transition Epith Cell 0-4 /hpf 09/22/23 00:30 Amorphous Sediment Not Reportable 09/22/23 00: Urine Bacteria Trace /hpf (NONE) 09/22/23 00:30 Hyaline Casts 0-4 /lpf H 09/22/23 00:30 Urine Mucus 2+ /hpf 09/22/23 00:30 Ethyl Alcohol < 10 mg/dL (0-10) 09/22/23 00:30 Influenza Type A Ag negative (Negative) 09/22/23 00:38 Influenza Type B Ag negative (Negative) 09/22/23 00:38 SARS-CoV-2 Ag (Rapid) negative (Negative) 09/22/23 00:38 Discharge Plan Discharge Patient Disposition: Home Clinical Impression: Gastroenteritis, Acute hypokalemia Headache Qualifiers: Headache type: unspecified Headache chronicity pattern: acute headache I ntractability: not intractable Qualified Code(s): R51.9 - Headache, unspecified Condition: Stable Prescriptions: New ondansetron HCl 4 mg tablet 4 mg PO Q12H 5 Days Qty: 10 0RF No Action gabapentin 100 mg capsule 200 mg PO TID Rx Instructions: pts family states the pt takes 200mg bid but it will change 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 trazodone 100 mg tablet 100 mg PO .HS Qty: 30 2RF quetiapine [Seroquel] 400 mg tablet 800 mg PO BEDTIME Qty: 60 2RF quetiapine [Seroquel] 100 mg tablet 100 mg PO BID Qty: 60 3RF lamotrigine [Lamictal] 100 mg tablet 100 mg PO DAILY Qty: 90 0RF paroxetine HCl [Paxil] 20 mg tablet 20 mg PO .HS Qty: 30 2RF morphine 15 mg tablet extended release 15 mg PO TID cyclobenzaprine 10 mg Tablet 10 mg PO BID potassium chloride 10 mEq tablet extended release 10 meq PO DAILY simvastatin 40 mg Tablet 40 mg PO DAILY levothyroxine 75 mcg Tablet 75 mcg PO DAILY dicyclomine 20 mg tablet 20 mg PO QID Rx Instructions: pts family states the pt takes 1 cap qam 2 caps at noon and 1 cap bedtime omeprazole 20 mg Capsule,Delayed Release(Dr/Ec) 20 mg PO BID loratadine 10 mg Tablet 10 mg PO QAM Vitamin B-12 1 tab PO DAILY Vitamin C 1 tab PO DAILY magnesium 1 tab PO DAILY vitamin E 1 cap PO DAILY Discharge Orders: Discharge ED (Routine); Ordered 09/22/23 Ordered By: Rickey Romero Referrals: Caitlyn Leslie MD [Primary Care Provider] - Discharge Diet: Advance as tolerated Discharge Activity: Resume usual activity Patient Instructions: Opioid Safety, Pain Management Activity Restrictions/Additional Instructions: Activity Restrictions/Additional Instructions: Thank you for choosing [facility] for your healthcare needs today. Please realize that you were seen in the Emergency Department and that we are providing you with an emergency medical screening exam and this may not be a complete and all inclusive of all the testing and or medical work-up that you may need to determine your ailment or severity of your illness. It is very important that you follow-up as instructed with your Primary care provider or Specialist for additional evaluation and to discuss your medical treatment plan. Coding Level of Care Code ED Regulatory Coordinator for Chg Fwd Documented by User: Rickey Romero MD 09/22/23 02:02 HPI - Abdominal Pain 2 General: Chief Complaint: Abdominal Pain Stated Complaint: N/V, Weakness Time Seen by Provider: 09/22/23 00:06 [facility] ED 2 PFSH: Medical History Psychiatric care On high dose antipsychotic drug therapy Alcohol dependence, uncomplicated Schizoaffective disorder, bipolar type Social History Smoking and tobacco/nicotine status: current every day tobacco/nicotine user cigarettes Packs smoked per day: 0.5 Years cigarettes smoked: 40 Quit status (tobacco/nicotine): has tried quititng Number of times tried to quit tobacco: 12 Second hand smoke exposure: No Alcohol intake: current Alcohol intake frequency: 0-2 Drinks per Day Alcohol type: beer and hard liquor Substance/Drug Use: never Course 2 Vital Signs: Vital signs: Vital Signs Temperature 97.9 F 09/21/23 23:54 Pulse Rate 116 H 09/21/23 23:54 Respiratory Rate 14 09/21/23 23:54 Blood Pressure 123/76 09/21/23 23:54 Pulse Oximetry 100 09/21/23 23:54 Oxygen Delivery Me thod Room Air 09/21/23 23:54 MDM - Abdominal Pain Medical Decision Making I discussed the patient's history of present illness, physical exam findings, pertinent labs, pertinent radiographic exams and plan of care with the midlevel provider. I did personally have a [id number] evaluation and discussion with the patient regarding the plan of care and the need for further admission/transfer. Medical Records I reviewed the patient's medical records. Lab Data I reviewed the patient's lab results. 09/22/23 00:30 09/22/23 00:30 Labs/Radiology: Radiology Impressions Chest X-Ray 09/22/23 00:16 IMPRESSION: No acute cardiopulmonary abnormality. Laboratory Results WBC 11.25 10^3/uL (3.29-11.43) 09/22/23 00:30 RBC 4.94 10^6/uL (3.85-5.65) 09/22/23 00:30 Hgb 16.00 g/dL (11.27-16.99) 09/22/23 00:30 Hct 46.1 % (36-47) 09/22/23 00:30 MCV 93.3 fl (85-98) 09/22/23 00:30 MCH 32.4 pg (27-33) 09/22/23 00:30 MCHC 34.7 g/dL (30-55) 09/22/23 00:30 RDW 12.5 % (12.1-15.1) 09/22/23 00:30 Plt Count 265 10^3/cmm (157-399) 09/22/23 00:30 MPV 10.8 fL (7.4-10.4) H 09/22/23 00:30 Neut % (Auto) 83.4 % 09/22/23 00:30 Lymph % (Auto) 3.6 % 09/22/23 00:30 [place] % (Auto) 12.5 % 09/22/23 00:30 Eos % (Auto) 0.0 % 09/22/23 00:30 Baso % (Auto) 0.2 % 09/22/23 00:30 Neut # (Auto) 9.39 10^3/uL (1.8-7.7) H 09/22/23 00:30 Lymph # (Auto) 0.4 10^3/uL (0.8-4.8) L 09/22/23 00:30 [place] # (Auto) 1.4 10^3/uL (0.2-0.9) H 09/22/23 00:30 Eos # (Auto) 0.0 10^3/uL (0.0-0.8) 09/22/23 00:30 Baso # (Auto) 0.0 10^3/uL (0.0-0.1) 09/22/23 00:30 Nucleated RBC % (auto) 0 % 09/22/23 00:30 Nucleated RBCs # 0.0 /100WBC 09/22/23 00:30 Sodium 136 mmol/L (136-145) 09/22/23 00:30 Potassium 3.2 mmol/L (3.5-5.1) L 09/22/23 00:30 Chloride 94 mmol/L (98-107) L 09/22/23 00:30 Carbon Dioxide 23 mmol/L (22-29) 09/22/23 00:30 Anion Gap 22.2 (5-19) H 09/22/23 00:30 BUN 19 mg/dL (6-20) 09/22/23 00:30 Creatinine 1.0 mg/dL (0.5-0.9) H 09/22/23 00:30 GFR Calculation 56.9 mL/min (90-130) L 09/22/23 00:30 Glucose 141 mg/dL (65-115) H 09/22/23 00:30 Calculated Osmolality 287 mOsm/kg (285-295) 09/22/23 00:30 Calcium 10.8 mg/dL (8.5-10.5) H 09/22/23 00:30 Total Bilirubin 0.3 mg/dL (0.15-1.2) 09/22/23 00:30 AST 21 U/L (0-32) 09/22/23 00:30 ALT 19 U/L (0-33) 09/22/23 00:30 Alkaline Phosphatase 119 U/L (35-105) H 09/22/23 00:30 Total Protein 7.8 g/dL (6.6-8.7) 09/22/23 00:30 Albumin 5.4 g/dL (3.5-5.2) H 09/22/23 00:30 Globulin 2.4 g/dL (1.3-4.6) 09/22/23 00:30 Lipase 25 U/L (13-60) 09/22/23 00:30 Urine Color Yellow (Yellow) 09/22/23 00:30 Urine Appearance Clear (CLEAR) 09/22/23 00:30 Urine pH 5 (5-7) 09/22/23 00:30 Ur Specific [place] 1.025 (1.005-1.030) 09/22/23 00:30 Urine Protein 2+ (Negative) H 09/22/23 00:30 Urine Glucose (UA) Norm (Normal) 09/22/23 00:30 Urine Ketones 2+ (Negative) H 09/22/23 00:30 Urine Blood Neg (Negative) 09/22/23 00:30 Urine Nitrate Negative (Negative) 09/22/23 00:30 Urine Bilirubin Neg (Negative) 09/22/23 00:30 Urine Urobilinogen Neg mg/dL (Negative) 09/22/23 00:30 Ur Leukocyte Esterase Negative (Negative) 09/22/23 00:30 Urine RBC 0-4 /hpf (0-2) H 09/22/23 00:30 Urine WBC None /hpf (0-5) 09/22/23 00:30 Ur Squamous Epith Cells 0-4 /hpf (0-5) H 09/22/23 00:30 Ur Transition Epith Cell 0-4 /hpf 09/22/23 00:30 Amorphous Sediment Not Reportable 09/22/23 00:30 Urine Bacteria Trace /hpf (NONE) 09/22/23 00:30 Hyaline Casts 0-4 /lpf H 09/22/23 00:30 Urine Mucus 2+ /hpf 09/22/23 00:30 Ethyl Alcohol < 10 mg/dL (0-10) 09/22/23 00:30 Influenza Type A Ag negative (Negative) 09/22/23 00:38 Influenza Type B Ag negative (Negative) 09/22/23 00:38 SARS-CoV-2 Ag (Rapid) negative (Negative) 09/22/23 00:38 All radiology interpretation(s) finalized by discharge Discharge Plan Discharge Patient Disposition: Home Clinical Impression: Gastroenteritis, Acute hypokalemia Headache Qualifiers: Headache type: unspecified Headache chronicity pattern: acute headache I ntractability: not intractable Qualified Code(s): R51.9 - Headache, unspecified Condition: Stable Prescriptions: New ondansetron HCl 4 mg tablet 4 mg PO Q12H 5 Days Qty: 10 0RF No Action gabapentin 100 mg capsule 200 mg PO TID Rx Instructions: pts family states the pt takes 200mg bid but it will change 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 trazodone 100 mg tablet 100 mg PO .HS Qty: 30 2RF quetiapine [Seroquel] 400 mg tablet 800 mg PO BEDTIME Qty: 60 2RF quetiapine [Seroquel] 100 mg tablet 100 mg PO BID Qty: 60 3RF lamotrigine [Lamictal] 100 mg tablet 100 mg PO DAILY Qty: 90 0RF paroxetine HCl [Paxil] 20 mg tablet 20 mg PO .HS Qty: 30 2RF morphine 15 mg tablet extended release 15 mg PO TID cyclobenzaprine 10 mg Tablet 10 mg PO BID potassium chloride 10 mEq tablet extended release 10 meq PO DAILY simvastatin 40 mg Tablet 40 mg PO DAILY levothyroxine 75 mcg Tablet 75 mcg PO DAILY dicyclomine 20 mg tablet 20 mg PO QID Rx Instructions: pts family states the pt takes 1 cap qam 2 caps at noon and 1 cap bedtime omeprazole 20 mg Capsule,Delayed Release(Dr/Ec) 20 mg PO BID loratadine 10 mg Tablet 10 mg PO QAM Vitamin B-12 1 tab PO DAILY Vitamin C 1 tab PO DAILY magnesium 1 tab PO DAILY vitamin E 1 cap PO DAILY Discharge Orders: Discharge ED (Routine); Ordered 09/22/23 Ordered By: Rickey Romero Referrals: Caitlyn Leslie MD [Primary Care Provider] - Discharge Diet: Advance as tolerated Discharge Activity: Resume usual activity Patient Instructions: Opioid Safety, Pain Management Activity Restrictions/Additional Instructions: Activity Restrictions/Additional Instructions: Thank you for choosing [facility] for your healthcare needs today. Please realize that you were seen in the Emergency Department and that we are providing you with an emergency medical screening exam and this may not be a complete and all inclusive of all the testing and or medical work-up that you may need to determine your ailment or severity of your illness. It is very important that you follow-up as instructed with your Primary care provider or Specialist for additional evaluation and to discuss your medical treatment plan. Coding Level of Care Code ED Regulatory Coordinator for Korin Bustillos
[2023-09-22 00:34] LABS: Basophils % 0.2 %; Hematocrit 46.1 % (36-47); Lymphocytes # 0.4 10^3/uL (0.8-4.8); Lymphocytes % 3.6 %; Mean Corpuscular HGB Conc 34.7 g/dL (30-55); Mean Corpuscular Hemoglobin 32.4 pg (27-33); Mean Corpuscular Volume 93.3 fl (85-98); Mean Platelet Volume 10.8 fL (7.4-10.4); Monocytes # 1.4 10^3/uL (0.2-0.9); Monocytes % 12.5 %; Neutrophils # 9.39 10^3/uL (1.8-7.7); Neutrophils % 83.4 %; Nucleated Red Blood Cells % 0 %; Platelet Count 265 10^3/cmm (157-399); Red Blood Count 4.94 10^6/uL (3.85-5.65); Red Cell Distribution Width 12.5 % (12.1-15.1); White Blood Count 11.25 10^3/uL (3.29-11.43)
[2023-09-22] MEDS: sodium chloride 0.9% 1,000 ML 999 ML IV (00:36)
[2023-09-22] MEDS: ondansetron 2 mg/ML SDV 2 mL 4 MG IVP (00:36)
--- NOTE | 2023-09-22 00:42 | ECG_ITS ---
[facility] Test Date: 2023-09-22 Pat Name: Mila Simon Department: Room: Gender: Female Hr Director: : 1965 Requested By: Yobani Hanna Order Number: [id number] MD: Mirza Qureshi M.D. Measurements Intervals [place] Rate: 77 P: 41 CA: 184 QRS: 84 QRSD: 90 T: 77 QT: 321 QTc: 364 Interpretive Statements SINUS RHYTHM POSSIBLE RIGHT ATRIAL ENLARGEMENT [0.25mV P-WAVE] NONSPECIFIC ST & T-WAVE ABNORMALITY Compared to ECG 02/02/2020 14:49:13 T-wave abnormality now present Electronically Signed On 09-22-2023 21:42:48 CDT by Mirza Qureshi M.D. [email or web address]
[2023-09-22 00:45] LABS: Add Urine Culture? No; Add Urine Microscopic? YES; Bacteria Urine TRACE /hpf; Bilirubin Urine Neg (Negative); Blood Urine Neg (Negative); Glucose Urine UA Norm (Normal); Hyaline Casts Urine 0-4 /lpf; Ketones Urine 2+ (Negative); Leukocyte Esterase Urine Negative (Negative); Mucus Urine 2+ /hpf; Nitrate Urine Negative (Negative); Protein Urine 2+ (Negative); RBC Urine 0-4 /hpf (0-2); Specific Gravity, Urine 1.025 (1.005-1.030); Squamous Epithelial Cell Urine 0-4 /hpf (0-5); Transitional Epi Cells Urine 0-4 /hpf; Urine Appearance Clear (CLEAR); Urine Color Yellow (Yellow); Urobilinogen Urine Neg (Negative); pH Urine 5 (5-7)
[2023-09-22 00:51] LABS: Alanine Aminotransferase 19 U/L (0-33); Albumin Level 5.4 g/dL (3.5-5.2); Alkaline Phosphatase 119 U/L (35-105); Anion Gap 22.2 (5-19); Aspartate Amino Transferase 21 U/L (0-32); Blood Urea Nitrogen 19 mg/dL (6-20); Calcium 10.8 mg/dL (8.5-10.5); Carbon Dioxide 23 mmol/L (22-29); Chloride 94 mmol/L (98-107); Creatinine Clr Calc Pharmacy 51.5126; Globulin 2.4 g/dL (1.3-4.6); Glomerular Filtration Rate 56.9 mL/min (90-130); Glucose 141 mg/dL (65-115); Lipase 25 U/L (13-60); Osmolality Calculated 287 mOsm/kg (285-295); Potassium 3.2 mmol/L (3.5-5.1); Sodium 136 mmol/L (136-145); Total Bilirubin 0.3 mg/dL (0.15-1.2); Total Protein 7.8 g/dL (6.6-8.7)
[2023-09-22 00:52] LABS: Alcohol Level < 10 mg/dL (0-10)
[2023-09-22] MEDS: potassium chloride ER 20 mEq Tablet 40 MEQ PO (01:02)
[2023-09-22 01:06] LABS: Influenza A by IFA negative (Negative); Influenza B by IFA negative (Negative); SARS Covid-2 Antigen negative (Negative)
[2023-09-22] MEDS: acetaminophen 500 mg Tablet 1000 MG PO (02:05)
[2023-09-22 02:06] VITALS: BP 156/86; PULSE 101; RESP 16; O2SAT 99
[2023-09-22 02:11] VITALS: BP 156/86; PULSE 101; RESP 16; TEMP 36.6; O2SAT 99
== END 2023-09-22 02:12 | disposition home or self-care (01) ==
PROVIDERS: Physician Assistant; Emergency Provider Internal Medicine; PCP Family Medicine
DX: K52.9 Noninfective gastroenteritis and colitis, unspecified (principal); E87.6 Hypokalemia; R51.9 Headache, unspecified; Z11.52 Encounter for screening for COVID-19; F17.210 Nicotine dependence, cigarettes, uncomplicated
CPT/HCPCS: 71046; 80053; 80307; 81001; 83690; 85025; 87426; 87804; 93005; 96361; 96374; 99285; J2405; J7030

== ENCOUNTER → 2023-11-12 15:42 | Outpatient (BNVA) | payer MEDICARE, SELFPAY | PROVIDERS: PCP Family Medicine; Visit Provider Nurse Practitioner | DX: Z79.899 Other long term (current) drug therapy (principal); F25.0 Schizoaffective disorder, bipolar type; F10.20 Alcohol dependence, uncomplicated | CPT/HCPCS: 80061; 83036 ==

== ENCOUNTER → 2024-02-09 11:00 | Outpatient (BNVA) | payer MEDICARE, SELFPAY | PROVIDERS: PCP Family Medicine; Visit Provider Psychiatry & Neurology Neurology | DX: G56.02 Carpal tunnel syndrome, left upper limb (principal); R20.0 Anesthesia of skin; R20.2 Paresthesia of skin; G56.23 Lesion of ulnar nerve, bilateral upper limbs; G62.89 Other specified polyneuropathies | CPT/HCPCS: 95911; 95912; 95913 ==

== ENCOUNTER 2024-02-15 11:16 | Outpatient (CLI) | payer MEDICARE, SELFPAY ==
--- NOTE | 2024-02-15 11:23 | USCV_ITS ---
Mila Simon Age: 58 Gender: F : 1965 Exam Date: 02/15/2024 11:34 Ordering Phys: Caitlyn Leslie MD Technologist: CT Exam Location: [facility] [place] Indication: EDEMA BP: 105 / 73 HR: 79 Rhythm: Sinus Technical Quality: Adequate MEASUREMENTS (Male / Female) Normal Values 2D ECHO LVOT Diameter 2.0 cm LV Ejection Fraction MOD 4C 65.4 % LV Ejection Fraction MOD 2C 62.9 % LV Ejection Fraction 2C AL 65.5 % LA Diameter 2.8 cm RA Systolic Volume 4C AL 18.4 ml RA Systolic Volume 4C MOD 17.4 ml LA Sys Volume AL 37.6 cm cubed LA Sys Volume Index AL 24.2 cm cubed/m squared Aorta at Sinotubular Diameter 1.8 cm IVC Diameter 2.1 cm M-MODE LA Ao Ratio MM 1.6 AV Cusp Separation MM 1.7 cm DOPPLER AV Peak Velocity 146.0 cm/s LVOT Peak Velocity 110.0 cm/s AV Area Cont Eq vti 2.8 cm squared AV Area Cont Eq pk 2.4 cm squared MV Peak Velocity 110.0 cm/s MV Area PHT 3.4 cm squared Mitral E to A Ratio 0.8 TR Peak Velocity 278.0 cm/s TR Peak Gradient 30.9 mmHg TV Peak E Velocity 95.0 cm/s Right Atrial Pressure 3.0 mmHg Pulmonary Artery Systolic Pressu 33.9 mmHg PV Peak Velocity 112.0 cm/s FINDINGS Left Ventricle Normal left ventricular size, systolic function and wall thickness, with no regional wall motion abnormalities. Estimated ejection fraction 60%. Normal diastolic filling pattern. Right Ventricle The right ventricle is normal in size and function. Right Atrium The right atrium is normal in size. Left Atrium The left atrium is normal in size. Mitral Valve Structurally normal mitral valve without significant stenosis or prolapse. There is mild mitral regurgitation. Aortic Valve Structurally normal aortic valve without significant sclerosis or stenosis. There is no aortic regurgitation. Tricuspid Valve Structurally normal tricuspid valve without significant stenosis trace regurgitation. Pulmonary artery systolic pressure is normal. Pulmonic Valve Structurally normal pulmonic valve without significant stenosis. There is no pulmonic regurgitation. Pericardium Normal pericardium without effusion. Aorta Normal ascending aorta dimension. IVC The inferior vena cava appears normal. CONCLUSIONS Normal left ventricular size, systolic function and wall thickness, with no regional wall motion abnormalities. Estimated ejection fraction 60%. Normal diastolic filling pattern. Structurally normal mitral valve without significant stenosis or prolapse. There is mild mitral regurgitation. There is no pericardial effusion. Right atrial pressure is around 5 mm of mercury. Roberto Noble MD (Electronically Signed) Final Date: 17 February 2024 21:36 S
== END 2024-02-15 11:17 | disposition home or self-care (01) ==
LOC: RAD 11:17
PROVIDERS: PCP Family Medicine; Visit Provider Family Medicine
DX: R60.0 Localized edema (principal)
CPT/HCPCS: 93306

== ENCOUNTER → 2024-03-21 10:12 | Outpatient (BNVA) | payer MEDICARE, SELFPAY | PROVIDERS: PCP Family Medicine; Visit Provider Specialist | DX: G56.03 Carpal tunnel syndrome, bilateral upper limbs (principal) | CPT/HCPCS: 73130; 99204 ==

== ENCOUNTER → 2024-05-24 08:42 | Outpatient (BNVA) | payer MEDICARE, SELFPAY | PROVIDERS: PCP Family Medicine; Referring Provider Specialist; Visit Provider Specialist | DX: G56.03 Carpal tunnel syndrome, bilateral upper limbs (principal); G56.23 Lesion of ulnar nerve, bilateral upper limbs | CPT/HCPCS: 95861; 95870; 95886; 95910; 99202 ==

== ENCOUNTER 2024-05-31 10:49 | Outpatient (CLI) | payer MEDICARE, SELFPAY ==
--- NOTE | 2024-05-31 10:56 | MM_ITS ---
WS: [id number] BILATERAL 3D TOMOSYNTHESIS DIGITAL SCREENING MAMMOGRAPHY WITH CAD CLINICAL INFORMATION: SCREENING HISTORY: Screening mammogram. No current complaints. COMPARISON: 2022 TECHNIQUE: Bilateral CC and MLO views. FINDINGS: The breasts are composed of heterogeneous fibroglandular density tissue, which can limit the detectio n of small underlying mass lesions. No suspicious mass, asymmetry, calcifications, or architectural d istortion. No evidence of malignancy. MM/MM [facility] tomosynthesis [id number] IMPRESSION: DENSITY: The breasts are heterogeneously dense, which may obscure small masses. BI-RADS: 2 - Benign FOLLOW UP: 1 Year Follow-up Recommend return to annual screening mammography.
== END 2024-05-31 10:50 | disposition home or self-care (01) ==
LOC: RAD 10:50
PROVIDERS: PCP Family Medicine; Visit Provider Family Medicine
DX: Z12.31 Encounter for screening mammogram for malignant neoplasm of breast (principal); R92.333 Mammographic heterogeneous density, bilateral breasts
CPT/HCPCS: 77063; 77067

== ENCOUNTER → 2024-08-01 10:32 | Outpatient (BNVA) | payer MEDICARE, SELFPAY | PROVIDERS: PCP Family Medicine; Visit Provider Specialist | DX: Z01.818 Encounter for other preprocedural examination (principal); G56.03 Carpal tunnel syndrome, bilateral upper limbs | CPT/HCPCS: 36415; 80053; 81001; 85025; 87086; 99214 ==

== ENCOUNTER 2024-08-16 05:30 | Day surgery (SDC) | payer MEDICARE, SELFPAY ==
[2024-08-16] VITALS (10 sets, daily range): BP systolic 105–126; BP diastolic 65–76; PULSE 62–89; RESP 12–18; TEMP 36.1–37.1; O2SAT 93–98; BMI 23.5
--- NOTE | 2024-08-16 06:05 | ANES.PREANE2 ---
Pre-Anesthetic Assessment Height/Weight: Height 5 ft 4 in Preop Diagnosis: Carpal tunnel syndrome Operation Date: 08/16/24 07:00 Proposed Procedures p Carpal Tunnel Release(Left) - Gill Merlos MD Was Beta Sai taken within 24 hours: N/A Was Clonidine taken within 24 hours: N/A Social No alcohol and No tobacco Exam alert, oriented x 3, clear to auscultation bilaterally and regular rate & rhythm Airway Submandibular: within normal limits Cervical ROM: within normal limits Mallampati: Class III Dentition: false Anesthetic Plan ASA status: 3 Anesthesia: General Other: No prior issues with anesthesia NPO since yesterday History of hypothyroidism on Synthroid GERD on omeprazole CARMELA on BiPAP Current everyday smoker Alcohol dependence, drinks daily Labs reviewed 08/01/2024 and acceptable for procedure today Echo 02/2024 showing EF 60% with no wall motion abnormalities Plan for general anesthetic Medications/Allergies Home Medications ?Medication ?Instructions ?Recorded ?Confirmed ?Last Taken ?Type Vitamin B-12 1 tab PO DAILY 02/02/20 08/15/24 08/15/24 History Vitamin C 1 tab PO DAILY 02/02/20 08/15/24 08/15/24 History cyclobenzaprine 10 mg tablet 10 mg PO BID 02/02/20 08/15/24 08/15/24 History dicyclomine 20 mg tablet 20 mg PO QID 02/02/20 08/15/24 08/15/24 History levothyroxine 75 mcg tablet 75 mcg PO DAILY 02/02/20 08/15/24 08/15/24 History loratadine 10 mg tablet 10 mg PO QAM 02/02/20 08/15/24 08/15/24 History magnesium 1 tab PO DAILY 02/02/20 08/15/24 08/15/24 History omeprazole 20 mg capsule,delayed 20 mg PO BID 02/02/20 08/15/24 08/15/24 History release potassium chloride 10 mEq 10 meq PO DAILY 02/02/20 08/15/24 08/15/24 History tablet,extended release simvastatin 40 mg tablet 40 mg PO DAILY 02/02/20 08/15/24 08/15/24 History vitamin E 1 cap PO DAILY 02/02/20 08/15/24 08/14/24 History gabapentin 100 mg capsule 200 mg PO TID 08/24/08/15/24 08/15/24 History morphine 15 mg tablet,extended 15 mg PO .COMPLEX 05/24/24 08/15/24 08/15/24 History release trazodone 100 mg tablet 100 mg PO .HS #30 tabs 08/08/24 08/15/24 08/14/24 Rx lamotrigine 100 mg tablet 100 mg PO DAILY #90 tabs 08/09/24 08/15/24 08/15/24 Rx (Lamictal) paroxetine HCl 20 mg tablet (Paxil) 20 mg PO .HS #30 tabs 08/09/24 08/15/24 08/14/24 Rx quetiapine 100 mg tablet (Seroquel) 100 mg PO BID #60 tabs 08/09/24 08/15/24 08/15/24 Rx quetiapine 400 mg tablet (Seroquel) 800 mg (2 x 400 mg) PO BEDTIME #60 08/09/24 08/15/24 08/14/24 Rx tabs Allergies Allergy/AdvReac Type Severity Reaction Status Date / Time shellfish derived Allergy Unknown Verified 08/15/24 13:33 [facility] Anesthesia Medical History Psychiatric care On high dose antipsychotic drug therapy Alcohol dependence, uncomplicated Schizoaffective disorder, bipolar type Social History Smoking and tobacco/nicotine status: current every day tobacco/nicotine user cigarettes Packs smoked per day: 0.5 Years cigarettes smoked: 40 Quit status (tobacco/nicotine): has tried quititng Number of times tried to quit tobacco: 12 Second hand smoke exposure: No Alcohol intake: current Alcohol intake frequency: 0-2 Drinks per Day Alcohol type: beer and hard liquor Substance/Drug Use: never Data Anesthesia Cardiac Studies: Echocardiogram 02/15/24
[2024-08-16] MEDS: acetaminophen 1,000 MG/100 ML PIGGYBACK 400 MG IV (06:19)
[2024-08-16] MEDS: CELEcoxib 200 mg Capsule 400 MG PO (06:21)
[2024-08-16] MEDS: sodium chloride 0.9% 1,000 ML 30 ML IV (06:28)
[2024-08-16] MEDS: ceFAZolin 2,000 mg SDV 2000 MG IVP (07:05)
--- NOTE | 2024-08-16 07:06 | P.HPUD_ITS ---
Surgery/Procedure H&P Update DATE OF PROCEDURE: August 16, 2024 DATE H&P PERFORMED: 08/12/24 H&P UPDATE INFORMATION: I have reviewed H&P completed within last 30 days, I have examined patient prior to procedure, No changes to prior documentation and [place] [facility] [place] indicated PREOP DIAGNOSIS: Carpal tunnel syndrome PLANNED PROCEDURE: Operation Date: 08/16/24 07:00 Proposed Procedures p Carpal Tunnel Release(Left) - Gill Merlos MD Related Problem List Diagnoses (1) Carpal tunnel syndrome, left:
[2024-08-16] MEDS: BUPivacaine 0.5% INJ 30 mL XX (07:48)
--- NOTE | 2024-08-16 09:01 | PM.OP ---
Operative Report Date of procedure: August 16, 2024 Pre-op diagnosis: Left carpal tunnel syndrome Post-op diagnosis: Left carpal tunnel syndrome Post-op findings: Severe compression across the left median nerve Procedure done: Left carpal tunnel release Implants: None Specimens removed/disposition: None Pathology: None Surgeon: Gill Merlos MD Electronic Technician: None Anesthesia: General (Per LMA, ASA 3) Estimated blood loss (mL): 2 Tourniquet time (min): 17 (At 250 mmHg) IV fluids (mL): 700 Urine output (mL): 0 (No Jose) Complications: None Findings: Severe compression across the carpal canal with purplish discoloration of the median nerve. Condition: stable Disposition: PACU (Then return to same-day surgery for discharge to home) Brief History: This is a 59-year-old woman presents today for left carpal tunnel release. NCS/EMG was completed on 05/24/2024. She states that she has had ongoing symptoms for several years, but there was some worsening following a recent fall. Patient reports numbness and tingling sensation in all fingers, as well as weakness, stiffness and limited range of motion in both hands. Patient states that her pain is worse at night, and it prevents her from sleeping. She states that her right thumb will also lock up, and she has to pry it open herself. After discussion in the office, she wished to proceed with left carpal tunnel release initially with potential right carpal tunnel release to follow. Procedure: The patient was brought to the operating theater. She had a general anesthetic per LMA, ASA 3, administered per roll shop supervisor without complication. The tourniquet was elevated to 250 mmHg for a total tourniquet time of 17 minutes. The patient was also given Ancef 2 g preoperatively. The arm was then prepped and draped with DuraPrep in usual fashion with the arm draped free. A surgical pause was performed. At the time, the surgical pause, we confirmed the site and side of surgery. We also confirmed the patient's identity, appropriate and timely administration of preoperative antibiotics and preoperative surgical markings. An incision was then made along the thenar crease. The incision crossed the wrist joint in a curvilinear fashion. Dissection continued through skin and soft tissues using a scalpel. The palmaris longus was identified along with the transverse carpal ligament. Each of these was released carefully to avoid injury to the median nerve. We were able to dissect gently into the carpal canal which was noted to be quite tight with significant compression across the median nerve. The nerve was visualized and was an hourglass shape. The canal was subsequently palpated to assure there was no bony encroachment upon the canal. There was a quite thickened fibrous tissue within the canal, and this was opened longitudinally as well. The canal was then palpated distally and proximally to assure that my small finger was passed easily without impingement. Finding this to be so, attention was directed to closure. The wound was irrigated with ropivacaine plain. It was then closed with 3-0 nylon in an interrupted mattress fashion. Sterile dressing was then placed consisting of Dermabond, OpSite, fluffed fluffs, sterile soft roll, and an Bhaskar wrap. The tourniquet was released after 17 minutes. There were no complications. There were no specimens. The procedure was well tolerated. Plan is the patient will be discharged home. Related Problem List Diagnoses (1) Carpal tunnel syndrome, left:
--- NOTE | 2024-08-16 09:25 | ANE.PACU2 ---
Inpatient post-anesthesia follow up: Airway intact: Yes Vital signs: Temperature 97.5 F Pulse Rate 84 Respiratory Rate 18 Blood Pressure 126/76 Pulse Oximetry 94 Oxygen Delivery Me thod Room Air Oxygen Flow Rate Fraction of Inspir ed Oxygen Hydration adequate: Yes Nausea and vomiting: No Pain level: 1 Mental status: Baseline
== END 2024-08-16 09:25 | disposition home or self-care (01) ==
PROVIDERS: PCP Family Medicine; Visit Provider Specialist
PROC: (CPT 64721; principal; 2024-08-16 07:00)
DX: G56.03 Carpal tunnel syndrome, bilateral upper limbs (principal); K21.9 Gastro-esophageal reflux disease without esophagitis; F17.210 Nicotine dependence, cigarettes, uncomplicated; G47.33 Obstructive sleep apnea (adult) (pediatric); Z79.899 Other long term (current) drug therapy; E03.9 Hypothyroidism, unspecified; Z79.890 Hormone replacement therapy; F10.20 Alcohol dependence, uncomplicated; Z91.013 Allergy to seafood
CPT/HCPCS: 64721; J0131; J0690; J1100; J1885; J2371; J2405; J2704; J3010; J3490; J7030

== ENCOUNTER → 2024-08-29 14:53 | Outpatient (BNVA) | payer MEDICARE, SELFPAY | PROVIDERS: PCP Family Medicine; Visit Provider Specialist | DX: G56.02 Carpal tunnel syndrome, left upper limb (principal) | CPT/HCPCS: 99024 ==

== ENCOUNTER → 2024-09-12 16:42 | Outpatient (BNVA) | payer MEDICARE, SELFPAY | PROVIDERS: PCP Family Medicine; Visit Provider Specialist | DX: Z01.818 Encounter for other preprocedural examination (principal) | CPT/HCPCS: 36415; 80053; 81001; 85025 ==

== ENCOUNTER 2024-10-11 05:43 | Day surgery (SDC) | payer MEDICARE, SELFPAY ==
[2024-10-11] VITALS (12 sets, daily range): BP systolic 105–167; BP diastolic 71–110; PULSE 63–90; RESP 15–18; TEMP 36.1–36.6; O2SAT 94–100; BMI 22.6
[2024-10-11] MEDS: sodium chloride 0.9% 1,000 ML 30 ML IV (06:23)
[2024-10-11] MEDS: acetaminophen 1,000 MG/100 ML PIGGYBACK 400 MG IV (06:25)
--- NOTE | 2024-10-11 06:27 | ANES.PREANE2 ---
Pre-Anesthetic Assessment Height/Weight: Height 5 ft 4 in Weight 132 lb Temp Pulse Resp BP Pulse Ox O2 Del Method 97.0 F L 79 16 129/74 96 Room Air 10/11/24 06:13 10/11/24 06:13 10/11/24 06:13 10/11/24 06:13 10/11/24 06:13 10/11/24 06:13 Preop Diagnosis: Carpal tunnel syndrome Operation Date: 10/11/24 07:00 Proposed Procedures p Carpal Tunnel Release(Right) - Gill Merlos MD s RIGHT TRIGGER THUMB RELEASE(Right) - Gill Merlso MD Was Beta Sai taken within 24 hours: N/A Was Clonidine taken within 24 hours: N/A Last intake: Intake Last Liquid Date 10/10/24 Last Liquid Time 20:00 Last Solid Date 10/10/24 Last Solid Time 20:00 Social No alcohol and No tobacco Exam alert, oriented x 3, clear to auscultation bilaterally and regular rate & rhythm Airway Submandibular: within normal limits Cervical ROM: within normal limits Mallampati: Class III Comments: Comments: Edentulous currently Anesthetic Plan ASA status: 3 Anesthesia: General Other: No prior issues with anesthesia. Similar surgery in August under [facility] without issues NPO since yesterday History of hypothyroidism on Synthroid GERD on omeprazole CARMELA on BiPAP Current everyday smoker Alcohol dependence, drinks daily Labs reviewed 09/12/2024 and acceptable for procedure today Echo 02/2024 showing EF 60% with no wall motion abnormalities Plan for general anesthetic Medications/Allergies Home Medications ?Medication ?Instructions ?Recorded ?Confirmed ?Last Taken ?Type Vitamin B-12 1 tab PO DAILY 02/02/20 10/10/24 10/10/24 History Vitamin C 1 tab PO DAILY 02/02/20 10/10/24 10/10/24 History cyclobenzaprine 10 mg tablet 10 mg PO BID 02/02/20 10/11/24 10/10/24 History dicyclomine 20 mg tablet 20 mg PO QID 02/02/20 10/10/24 10/10/24 History levothyroxine 75 mcg tablet 75 mcg PO DAILY 02/02/20 10/10/24 10/10/24 History loratadine 10 mg tablet 10 mg PO QAM 02/02/20 10/10/24 10/10/24 History magnesium 1 tab PO DAILY 02/02/20 10/10/24 08/15/24 History omeprazole 20 mg capsule,delayed 20 mg PO BID 02/02/20 10/10/24 10/10/24 History release potassium chloride 10 mEq 10 meq PO DAILY 02/02/20 10/10/24 10/10/24 History tablet,extended release simvastatin 40 mg tablet 40 mg PO DAILY 02/02/20 10/10/24 10/10/24 History vitamin E 1 cap PO DAILY 02/02/20 10/10/24 08/14/24 History gabapentin 100 mg capsule 200 mg PO TID 02/26/21 10/10/24 10/10/24 History morphine 15 mg tablet,extended 15 mg PO Q4H 05/24/24 10/10/24 10/10/24 History release trazodone 100 mg tablet 100 mg PO .HS #30 tabs 08/08/24 10/10/24 10/10/24 Rx lamotrigine 100 mg tablet 100 mg PO DAILY #90 tabs 08/09/24 10/10/24 10/10/24 Rx (Lamictal) paroxetine HCl 20 mg tablet (Paxil) 20 mg PO .HS #30 tabs 08/09/24 10/10/24 10/10/24 Rx quetiapine 100 mg tablet (Seroquel) 100 mg PO BID #60 tabs 08/09/24 10/10/24 10/10/24 Rx quetiapine 400 mg tablet (Seroquel) 800 mg (2 x 400 mg) PO BEDTIME #60 08/09/24 10/10/24 10/10/24 Rx tabs albuterol sulfate 90 mcg/actuation 2 puff inhalation Q4H 10/10/24 10/11/24 10/09/24 History aerosol inhaler ferrous sulfate 325 mg (65 mg 325 mg PO DAILY 10/10/24 10/10/24 10/10/24 History iron) tablet (FeroSul) furosemide 20 mg tablet 20 mg PO DAILY 10/10/24 10/11/24 10/10/24 History Allergies Allergy/AdvReac Type Severity Reaction Status Date / Time shellfish derived Allergy ADR-Gastrointestinal Verified 10/11/24 06:07 Upset Current Medications Generic Name Dose Route Start Last Admin Trade Name Freq PRN Reason Stop Dose Admin Sodium Chloride 1,000 mls @ 30 mls/hr 10/11/24 06:00 10/11/24 06:23 Sodium Chloride 0.9% IV 10/12/24 05:59 30 mls/hr .Q24H LISA Administration PFSH Anesthesia Medical History Psychiatric care On high dose antipsychotic drug therapy Alcohol dependence, uncomplicated Schizoaffective disorder, bipolar type Social History Smoking and tobacco/nicotine status: current every day tobacco/nicotine user cigarettes Packs smoked per day: 0.5 Years cigarettes smoked: 40 Quit status (tobacco/nicotine): has tried quititng Number of times tried to quit tobacco: 12 Second hand smoke exposure: No Alcohol intake: current Alcohol intake frequency: 0-2 Drinks per Day Alcohol type: beer and hard liquor Substance/Drug Use: never Data Anesthesia Cardiac Studies: Echocardiogram 02/15/24
[2024-10-11] MEDS: CELEcoxib 200 mg Capsule 400 MG PO (06:32)
--- NOTE | 2024-10-11 06:57 | W.PM.OPSUD ---
Surgery/Procedure H&P Update DATE OF PROCEDURE: October 11, 2024 DATE H&P PERFORMED: 09/12/24 H&P UPDATE INFORMATION: I have reviewed H&P completed within last 30 days, I have examined patient prior to procedure, No changes to prior documentation, H&P is in [facility] EMR on date indicated and Risks and benefits of the procedure reviewed PREOP DIAGNOSIS: Carpal tunnel syndrome, right trigger thumb PLANNED PROCEDURE: Operation Date: 10/11/24 07:00 Proposed Procedures p Carpal Tunnel Release(Right) - Gill Merlos MD s RIGHT TRIGGER THUMB RELEASE(Right) - Gill Merlos MD Related Problem List Diagnoses (1) Carpal tunnel syndrome on right: (2) Trigger thumb of right hand:
[2024-10-11] MEDS: ceFAZolin 2,000 mg SDV 2000 MG IVP (07:11)
[2024-10-11] MEDS: BUPivacaine 0.5% INJ 30 mL INJECTION (07:28)
--- NOTE | 2024-10-11 08:23 | P.OP_ITS ---
Operative Report Date of procedure: October 11, 2024 Pre-op diagnosis: Right carpal tunnel syndrome, right thumb trigger finger Post-op diagnosis: Right carpal tunnel syndrome, right thumb trigger finger Post-op findings: Significant compression across the carpal canal Procedure done: Right carpal tunnel release Right trigger thumb release Implants: None Specimens removed/disposition: None Pathology: None Surgeon: Gill Merlos MD Instructor Of Sociology: None Anesthesia: General (Per LMA, ASA 3) Estimated blood loss (mL): 2 Tourniquet time (min): 24 (250 mmHg) IV fluids (mL): 1,000 Urine output (mL): 0 (No Jose) Complications: None Findings: Obvious compression from the transverse carpal ligament at the carpal canal and also from the A1 bethel of the thumb Condition: stable Disposition: PACU (Then return to same-day surgery for discharge to home) Brief History: This 59-year-old woman presents today for right carpal tunnel release along with release of right thumb triggering. She was last seen in the office on September 12, 2024, and risks and complications were discussed at that time. The patient was found to have bilateral carpal tunnel syndrome. She also had significant triggering of the right thumb. Procedure: The patient was brought to the operating theater. The patient had a general anesthesia per LMA, ASA 3. The tourniquet was elevated to 250 mmHg for a total tourniquet time of 24 minutes. The patient was also given Ancef 2 g preoperatively. The arm was then prepped and draped with DuraPrep in usual fas hion with the arm draped free. A surgical pause was performed. At the time, the surgical pause, we confirmed the site and side of surgery. We also confirmed the patient's identity, appropriate and timely administration of preoperative antibiotics and preoperative surgical markings. Following the surgical pause, an incision was made along the metacarpal phalangeal crease of the thumb. Dissection continued through the skin to the subcutaneous tissues using a scalpel. Blunt dissection was then utilized to spread soft tissues and allow access to the A1 bethel. It was then incised longitudinally and sharply using a knife. This was accomplished without difficulty and atraumatically. Once the A1 bethel was released, tendons were brought up out of the wound and evaluated. There were no gross masses on the tendon. Tendons were returned to normal position. We then irrigated the wound and subsequently closed it with 3-0 nylon with an interrupted mattress type suture. An incision was then made along the thenar crease. The incision crossed the wrist joint in a curvilinear fashion. Dissection continued through skin and soft tissues using a scalpel. The palmaris longus was identified along with the transverse carpal ligament. Each of these was released carefully to avoid injury to the median nerve. We were able to dissect gently into the carpal canal which was noted to be quite tight with significant compression across the median nerve. The nerve was visualized and was an hourglass shape. The canal was subsequently palpated to assure there was no bony encroachment upon the canal. There was a quite thickened fibrous tissue within the canal, and this was opened longitudinally as well. The canal was then palpated distally and proximally to assure that my small finger was passed easily without impingement. Finding this to be so, attention was directed to closure. The wound was irrigated with ropivacaine plain. It was then closed with 3-0 nylon in an interrupted mattress fashion. Sterile dressing was then placed consisting of Dermabond to both incisions, OpSite to each incision, fluffed fluffs, sterile soft roll, and an Bhaskar wrap. The tourniquet was released after 24 minutes. There were no complications. There were no specimens. The procedure was well tolerated. Plan is the patient will be discharged home. Related Problem List Diagnoses (1) Carpal tunnel syndrome on right: (2) Trigger thumb of right hand:
--- NOTE | 2024-10-11 09:00 | ANE.PACU2 ---
Inpatient post-anesthesia follow up: Airway intact: Yes Vital signs: Temperature 98 F Pulse Rate 83 Respiratory Rate 18 Blood Pressure 155/94 Pulse Oximetry 95 Oxygen Delivery Me thod Room Air Oxygen Flow Rate 2 Fraction of Inspir ed Oxygen Hydration adequate: Yes Nausea and vomiting: No Pain level: 1 Mental status: Baseline
== END 2024-10-11 09:20 | disposition home or self-care (01) ==
PROVIDERS: PCP Family Medicine; Visit Provider Specialist
PROC: (CPT 64721; principal; 2024-10-11 07:00)
PROC: (CPT 26055; 2024-10-11 07:00)
DX: G56.01 Carpal tunnel syndrome, right upper limb (principal); M65.311 Trigger thumb, right thumb; K21.9 Gastro-esophageal reflux disease without esophagitis; E03.9 Hypothyroidism, unspecified; F17.210 Nicotine dependence, cigarettes, uncomplicated; G47.33 Obstructive sleep apnea (adult) (pediatric); Z79.899 Other long term (current) drug therapy; Z79.890 Hormone replacement therapy
CPT/HCPCS: 64721; 26055; A4216; J0131; J0690; J1100; J2250; J2405; J2704; J3010; J3490; J7030; J9999

== ENCOUNTER → 2024-10-26 10:36 | Outpatient (BNVA) | payer MEDICARE, SELFPAY | PROVIDERS: PCP Family Medicine; Visit Provider Specialist | DX: Z98.890 Other specified postprocedural states (principal) | CPT/HCPCS: 99024 ==

== ENCOUNTER → 2025-02-20 13:20 | Outpatient (BNVA) | payer MEDICARE, SELFPAY | PROVIDERS: PCP Nurse Practitioner Family; Visit Provider Specialist | DX: M65.312 Trigger thumb, left thumb (principal); G56.02 Carpal tunnel syndrome, left upper limb; Z01.818 Encounter for other preprocedural examination | CPT/HCPCS: 36415; 73130; 80053; 81001; 85025; 99214 ==

== ENCOUNTER 2025-03-09 07:39 | Day surgery (SDC) | payer MEDICARE, SELFPAY ==
[2025-03-09] VITALS (14 sets, daily range): BP systolic 103–164; BP diastolic 63–94; PULSE 64–82; RESP 12–19; TEMP 36.1–36.7; O2SAT 94–97
[2025-03-09] MEDS: acetaminophen 1,000 MG/100 ML PIGGYBACK 400 MG IV (08:22)
--- NOTE | 2025-03-09 08:27 | P.HPUD_ITS ---
Surgery/Procedure H&P Update DATE OF PROCEDURE: March 09, 2025 DATE H&P PERFORMED: 02/20/25 H&P UPDATE INFORMATION: I have reviewed H&P completed within last 30 days, I have examined patient prior to procedure, No changes to prior documentation, H&P is in [facility] EMR on date indicated and Risks and benefits of the procedure reviewed PLANNED PROCEDURE: Operation Date: 03/09/25 09:35 Proposed Procedures p LEFT Thumb Trigger Finger Release(Left) - Gill Merlos MD Related Problem List Diagnoses 1. Trigger thumb, left thumb:
--- NOTE | 2025-03-09 09:06 | ANES.PREANE2 ---
Pre-Anesthetic Assessment Height/Weight: Height 1.63 m Weight 52.617 kg Temp Pulse Resp BP Pulse Ox O2 Del Method 98.1 F 82 18 103/63 97 Room Air 03/09/25 08:01 03/09/25 08:01 03/09/25 08:01 03/09/25 08:01 03/09/25 08:01 03/09/25 08:01 Operation Date: 03/09/25 09:35 Proposed Procedures p LEFT Thumb Trigger Finger Release(Left) - Gill Merlos MD Familial anesthetic complications: None Was Beta Sai taken within 24 hours: N/A Was Clonidine taken within 24 hours: N/A Last intake: Intake Last Liquid Date 03/08/25 Last Liquid Time 21:00 Last Solid Date 03/08/25 Last Solid Time 20:00 Social No alcohol and No tobacco Exam alert, oriented x 3, clear to auscultation bilaterally and regular rate & rhythm Airway Mallampati: Class II Pulmonary Asthma and Chronic Obstructive Pulmonary Disease GI Gastroesophageal Reflux Disease Metabolic Thyroid Disease Anesthetic Plan ASA status: 3 Anesthesia: General Risk of > 500 ml blood loss (7ml/kg in children): No Medications/Allergies Home Medications ?Medication ?Instructions ?Recorded ?Confirmed ?Last Taken ?Type Vitamin B-12 1 tab PO DAILY 02/02/20 03/08/25 03/08/25 History Vitamin C 1 tab PO DAILY 02/02/20 03/08/25 03/08/25 History cyclobenzaprine 10 mg tablet 10 mg PO BID 02/02/20 03/08/25 03/08/25 History dicyclomine 20 mg tablet 20 mg PO QID 02/02/20 03/08/25 03/08/25 History levothyroxine 75 mcg tablet 75 mcg PO DAILY 02/02/20 03/08/25 03/08/25 History loratadine 10 mg tablet 10 mg PO QAM 02/02/20 03/08/25 03/08/25 History magnesium 1 tab PO DAILY 02/02/20 03/08/25 03/08/25 History omeprazole 20 mg capsule,delayed 20 mg PO BID 02/02/20 03/08/25 03/08/25 History release potassium chloride 10 mEq 10 meq PO DAILY 02/02/20 03/08/25 03/08/25 History tablet,extended release simvastatin 40 mg tablet 40 mg PO DAILY 02/02/20 03/08/25 03/08/25 History vitamin E 1 cap PO DAILY 02/02/20 03/08/25 03/08/25 History gabapentin 100 mg capsule 200 mg PO TID 02/26/21 03/09/25 03/09/25 History morphine 15 mg tablet,extended 15 mg PO Q4H 05/24/24 03/09/25 03/09/25 History release albuterol sulfate 90 mcg/actuation 2 puff inhalation Q4H 10/10/24 03/08/25 03/08/25 History aerosol inhaler ferrous sulfate 325 mg (65 mg 325 mg PO DAILY 10/10/24 03/08/25 03/08/25 History iron) tablet (FeroSul) furosemide 20 mg tablet 20 mg PO DAILY 10/10/24 03/08/25 03/08/25 History lamotrigine 100 mg tablet 100 mg PO DAILY #90 tabs 01/30/25 03/08/25 03/08/25 Rx (Lamictal) quetiapine 100 mg tablet (Seroquel) 100 mg PO BID #60 tabs 01/30/25 03/09/25 03/09/25 Rx quetiapine 400 mg tablet (Seroquel) 800 mg (2 x 400 mg) PO BEDTIME #60 01/30/25 03/08/25 03/08/25 Rx tabs trazodone 100 mg tablet 100 mg PO .HS #30 tabs 01/30/25 03/08/25 03/08/25 Rx paroxetine HCl 20 mg tablet (Paxil) 20 mg PO .HS #30 tabs 02/20/25 03/08/25 03/08/25 Rx biotin 1 mg capsule 1 mg PO DAILY 03/08/25 03/08/25 03/08/25 History docusate sodium 50 mg capsule 50 mg PO DAILY 03/08/25 03/08/25 03/08/25 History (Stool Softener) Allergies Allergy/AdvReac Type Severity Reaction Status Date / Time shellfish derived Allergy ADR-Gastrointestinal Verified 02/20/25 07:55 Upset Current Medications Generic Name Dose Route Start Last Admin Trade Name Freq PRN Reason Stop Dose Admin Sodium Chloride 1,000 mls @ 30 mls/hr 03/09/25 08:00 03/09/25 08:21 Sodium Chloride 0.9% IV 03/10/25 07:59 30 mls/hr .Q24H LISA Administration PFSH Anesthesia Medical History (Updated 03/09/25 @ 08:29 by Gill Merlos MD) Psychiatric care On high dose antipsychotic drug therapy Alcohol dependence, uncomplicated Schizoaffective disorder, bipolar type Social History Smoking and tobacco/nicotine status: current every day tobacco/nicotine user cigarettes Packs smoked per day: 0.5 Years cigarettes smoked: 40 Quit status (tobacco/nicotine): has tried quititng Number of times tried to quit tobacco: 12 Second hand smoke exposure: No Alcohol intake: current Alcohol intake frequency: 0-2 Drinks per Day Alcohol type: beer and hard liquor Substance/Drug Use: never Data Anesthesia Cardiac Studies: Echocardiogram 02/15/24
[2025-03-09] MEDS: ceFAZolin 2,000 mg SDV 2000 MG IVP (09:35)
[2025-03-09] MEDS: BUPivacaine 0.5% INJ 30 mL XX (10:08)
--- NOTE | 2025-03-09 10:21 | P.OP_ITS ---
Operative Report Date of procedure: March 09, 2025 Pre-op diagnosis: Left trigger thumb Post-op diagnosis: Left trigger thumb Post-op findings: Very tight A1 bethel with fluid around the tendons. Procedure done: Release left trigger thumb Implants: None Specimens removed/disposition: None Pathology: None Surgeon: Gill Merlos MD Maintenance Tech: None Anesthesia: General (Per LMA, ASA 3) Estimated blood loss (mL): 1 Tourniquet time (min): 10 (At 250 mmHg) IV fluids (mL): 500 Urine output (mL): 0 (No Jose) Complications: None Findings: Significant inflammation of the flexor tendons of the thumb with tight A1 bethel Condition: stable Disposition: PACU (Then return to same-day surgery for discharge to home) Brief History: This 60-year-old woman presented to the office complaining of left thumb triggering. She was limited in her activities of daily living secondary to the thumb getting stuck. She had previously undergone carpal tunnel release, but this is developed since the carpal tunnel release. After discussion in the office, she wished to proceed with release of her left trigger thumb. Procedure: Patient was brought to the operating theater. She was placed on the operating room table. General anesthesia per LMA, ASA 3, was administered uneventfully. A tourniquet was placed high on the arm and was elevated to 250 mmHg following exsanguination. Tourniquet time was 10 minutes. Surgical pause was performed prior to commencement of the surgical procedure. At the time of the surgical pause we identified the site and side of surgery. We also identified the patient's identity and appropriate administration of IV antibiotics, Ancef 2 g. Following the surgical pause, an incision was made along the distal palmar crease beneath the thumb. Dissection continued through the skin to the subcutaneous tissues using a scalpel. Care was taken to protect injury to the digital nerves. Blunt dissection was then utilized to spread soft tissues and allow access to the A1 bethel. It was then incised longitudinally and sharply using a knife. This was accomplished without difficulty and atraumatically. Once the A1 bethel was released, attention was directed more proximally in the palm. There was some compression across the tendons in this area with fibrous tissue, and this was released as well. Following this, tendon was brought up out of the wound and evaluated. There were no gross masses on the tendon. Tendon was returned to normal position. We then irrigated the wound and subsequently closed it with 3-0 nylon with an interrupted mattress type suture. Following closure of the wound, the wound was injected with bupivacaine plain into the subcutaneous tissues as a local anesthetic. Sterile dressing was then placed consisting of Dermabond, OpSite, fluffed fluffs, sterile soft roll, and an Bhaskar wrap. The patient was returned to recovery in satisfactory condition. She will be discharged home to follow-up with me in the office. There were no complications and no specimens. Related Problem List Diagnoses 1. Trigger thumb, left thumb:
[2025-03-09] MEDS: labetalol 5 mg/mL SDV 20mL 10 MG IVP (11:00)
--- NOTE | 2025-03-09 12:05 | ANE.PACU2 ---
Inpatient post-anesthesia follow up: Airway intact: Yes Vital signs: Temperature 97 F Pulse Rate 73 Respiratory Rate 18 Blood Pressure 138/94 Pulse Oximetry 95 Oxygen Delivery Me thod Room Air Oxygen Flow Rate Fraction of Inspir ed Oxygen Hydration adequate: Yes Nausea and vomiting: No Pain level: 1 Mental status: Baseline
== END 2025-03-09 12:05 | disposition home or self-care (01) ==
PROVIDERS: PCP Nurse Practitioner Family; Visit Provider Specialist
PROC: (CPT 26055; principal; 2025-03-09 09:25)
DX: M65.312 Trigger thumb, left thumb (principal); J44.9 Chronic obstructive pulmonary disease, unspecified; K21.9 Gastro-esophageal reflux disease without esophagitis; E07.9 Disorder of thyroid, unspecified; F17.210 Nicotine dependence, cigarettes, uncomplicated
CPT/HCPCS: 26055; J0131; J0690; J2250; J2704; J3010; J3490; J7030; J9999

== ENCOUNTER → 2025-03-22 09:31 | Outpatient (BNVA) | payer MEDICARE, SELFPAY | PROVIDERS: PCP Nurse Practitioner Family; Visit Provider Specialist | DX: Z98.890 Other specified postprocedural states (principal) | CPT/HCPCS: 99024 ==

== ENCOUNTER 2025-04-04 12:13 | Outpatient (CLI) | payer MEDICARE, SELFPAY ==
--- NOTE | 2025-04-04 12:21 | XRR_ITS ---
PROCEDURE INFORMATION: Exam: XR Lumbosacral Spine Exam date and time: 04/04/2025 12:30 PM Age: 60 years old Clinical indication: Low back pain; Xfew years lower back pain after numerous falls, pain starting at back of head and running down spine. HX of breast cancer; Additional info: Spondylosis of lumbosacral region w/o myeopathy TECHNIQUE: Imaging protocol: Radiologic exam of the lumbosacral spine. Views: 6 or more views. Including flexion and extension views. COMPARISON: CR XR lumbar spine 2-3V* [id number] 12/24/2021 12:05 PM FINDINGS: Bones/joints: There is mild levoscoliosis, apex at L2-L3. There is approximately 6 mm anterolisthesis of L5 on S1 seen in neutral, flexion, and extension. There is mild diffuse osteopenia. No acute fracture is detected. There is mild disc space narrowing with endplate sclerosis and small anterior spurs at T12-L1. Remaining disc spaces are preserved. Mild endplate sclerosis and tiny anterior spurs are also noted from L1-L2 through L3-L4. Soft tissues: Unremarkable. XR/XR lumbar spine 6V w f/e [id number] IMPRESSION: 1. Mild diffuse osteopenia. 2. Mild levoscoliosis, apex at L2-L3. 3. Grade 1 spondylolisthesis at L5-S1, stable in neutral, flexion, and extension. 4. Mild degenerative disc disease and spondylosis as described above. 5. If there is clinical concern for disc herniation or nerve root impingement, MRI may be helpful for further evaluation.
--- NOTE | 2025-04-04 12:21 | XRR_ITS ---
PROCEDURE INFORMATION: Exam: XR Cervical Spine Exam date and time: 04/04/2025 12:30 PM Age: 60 years old Clinical indication: Neck pain; Xfew years lower back pain after numerous falls, pain starting at back of head and running down spine. HX of breast cancer; Additional info: Spondylosis of lumbosacral region w/o myelopathy TECHNIQUE: Imaging protocol: Radiologic exam of the cervical spine. Views: 6 or more views. COMPARISON: CR XR chest 2V* [id number] 09/22/2023 12:41 AM FINDINGS: Bones/joints: There is mild flexion of the cervical spine in the neutral position with minimal, approximately 1-2 mm, anterolisthesis of C4 on C5 and of C5 on C6, which is also demonstrated in flexion, but not seen on the extension view. No acute fracture is detected. There is mild disc space narrowing with endplate sclerosis and osteophytosis at C5-C6 and C6-C7. Remaining disc spaces are preserved. There is mild endplate sclerosis with small anterior spurs at C4-C5. There is slight widening of the space between the odontoid process and lateral masses of C1 on the left relative to the right on the open-mouth odontoid view, which is not appreciated on the routine AP view. This is felt to be positional. The patient is edentulous. Soft tissues: No significant prevertebral soft tissue swelling is seen. XR/XR cervical spine min 6V [id number] IMPRESSION: 1. Very mild grade 1 spondylolisthesis at C4-C5 and C5-C6 seen on the neutral and flexion views, but not seen on the extension view. 2. Mild degenerative disc disease and spondylosis, particularly at C5-C6 and C6-C7 as described above. 3. If there is clinical concern for disc herniation or nerve root impingement, MRI may be helpful for further evaluation.
== END 2025-04-04 12:14 | disposition home or self-care (01) ==
PROVIDERS: PCP Nurse Practitioner Family; Visit Provider Student in an Organized Health Care Education/Training Program
DX: M47.817 Spondylosis without myelopathy or radiculopathy, lumbosacral region (principal); M41.9 Scoliosis, unspecified; M85.88 Other specified disorders of bone density and structure, other site; M48.061 Spinal stenosis, lumbar region without neurogenic claudication; M51.369 Other intervertebral disc degeneration, lumbar region without mention of lumbar back pain or lower extremity pain; M25.78 Osteophyte, vertebrae
CPT/HCPCS: 72052; 72114

== ENCOUNTER → 2025-04-25 09:10 | Outpatient (BNVA) | payer MEDICARE, SELFPAY | PROVIDERS: PCP Nurse Practitioner Family; Visit Provider Nurse Practitioner | DX: Z79.899 Other long term (current) drug therapy (principal) | CPT/HCPCS: 80061; 83036 ==

== ENCOUNTER 2025-06-08 10:35 | Outpatient (CLI) | payer MEDICARE, SELFPAY ==
--- NOTE | 2025-06-08 10:45 | MM_ITS ---
WS: [id number] BILATERAL SCREENING DIGITAL TOMOSYNTHESIS MAMMOGRAM WITH CAD HISTORY: SCREENING COMPARISON: 05/31/2024, 03/23/2023, 02/02/2023 Bilateral CC and MLO views with tomosynthesis and synthetic mammography submitted. Computer aided detection analyzed. Breast composition: The breasts are heterogeneously dense, which may obscure small masses. No suspicious masses, microcalcifications or architectural distortion. Benign calcifications are stable. MM/MM scr tomosynthesis [id number] IMPRESSION: BI-RADS: 2 - Benign FOLLOW UP: 1 Year Follow-up
== END 2025-06-08 10:36 | disposition home or self-care (01) ==
LOC: RAD 10:36
PROVIDERS: PCP Nurse Practitioner Family; Visit Provider Nurse Practitioner Family
DX: Z12.31 Encounter for screening mammogram for malignant neoplasm of breast (principal); R92.333 Mammographic heterogeneous density, bilateral breasts; R92.1 Mammographic calcification found on diagnostic imaging of breast
CPT/HCPCS: 77063; 77067